=== PATIENT | male | born 1950 | race Caucasian/White ===

== ENCOUNTER 2018-04-15 06:04 | Day surgery (SDC) | payer MEDICARE ==
[~2018-04-15] VITALS: Ht 177.8 cm; Wt 108.9 kg
[~2018-04-15 06:04] MED LIST: HYDACE10B PO; VALD20 PO
[2018-04-15] MEDS ORDERED: METO25ER PO (06:43)
[2018-04-15] MEDS ORDERED: IRBE150 PO (06:43)
[2018-04-15] MEDS ORDERED: ASPI81CH PO (06:44)
== END 2018-04-15 11:31 | disposition home or self-care (01) ==
LOC: ORSCSDS 06:04
PROVIDERS: Orthopaedic Surgery
PROC: 0MM14ZZ Reattachment of Right Shoulder Bursa and Ligament, Percutaneous Endoscopic Approach (ICD-10-PCS; principal; 2018-04-15 07:30)
PROC: 0LQ14ZZ Repair Right Shoulder Tendon, Percutaneous Endoscopic Approach (ICD-10-PCS; principal; 2018-04-15 07:30)
PROC: 0RNJ4ZZ Release Right Shoulder Joint, Percutaneous Endoscopic Approach (ICD-10-PCS; principal; 2018-04-15 07:30)
DX: M75.111 Incomplete rotator cuff tear or rupture of right shoulder, not specified as traumatic (principal); M75.41 Impingement syndrome of right shoulder; I10 Essential (primary) hypertension; I25.10 Atherosclerotic heart disease of native coronary artery without angina pectoris; Z79.82 Long term (current) use of aspirin; Z79.899 Other long term (current) drug therapy
CPT/HCPCS: J0330; J0690; J2250; J3010; J7040; J7120

== ENCOUNTER 2018-08-05 11:44 | Day surgery (SDC) | payer MEDICARE ==
[~2018-08-05] VITALS: Ht 180.3 cm; Wt 108.2 kg
[~2018-08-05 11:44] MED LIST changes: +ASPI81CH PO; +IRBE150 PO; +METO25ER PO
== END 2018-08-05 14:40 | disposition home or self-care (01) ==
LOC: ORSCSDS 11:44
PROVIDERS: Internal Medicine Gastroenterology
PROC: 0DB68ZX Excision of Stomach, Via Natural or Artificial Opening Endoscopic, Diagnostic (ICD-10-PCS; principal; 2018-08-05 13:00)
PROC: 0DBK8ZX Excision of Ascending Colon, Via Natural or Artificial Opening Endoscopic, Diagnostic (ICD-10-PCS; principal; 2018-08-05 13:00)
PROC: 0DBL8ZX Excision of Transverse Colon, Via Natural or Artificial Opening Endoscopic, Diagnostic (ICD-10-PCS; principal; 2018-08-05 13:00)
PROC: 0DB58ZX Excision of Esophagus, Via Natural or Artificial Opening Endoscopic, Diagnostic (ICD-10-PCS; principal; 2018-08-05 13:00)
DX: Z12.11 Encounter for screening for malignant neoplasm of colon (principal); Z86.010 Personal history of colon polyps; D12.2 Benign neoplasm of ascending colon; D12.3 Benign neoplasm of transverse colon; K57.30 Diverticulosis of large intestine without perforation or abscess without bleeding; Z87.891 Personal history of nicotine dependence; K74.69 Other cirrhosis of liver; K44.9 Diaphragmatic hernia without obstruction or gangrene; I85.00 Esophageal varices without bleeding; D69.6 Thrombocytopenia, unspecified; Z79.899 Other long term (current) drug therapy; Z79.82 Long term (current) use of aspirin
CPT/HCPCS: 87081; 88305; 88312; J7120

== ENCOUNTER → 2020-08-17 | Outpatient (CLI) | payer MEDICARE | END | disposition home or self-care (01) | LOC: PLD 13:29 → LAB SHORT 13:29 | DX: D22.5 Melanocytic nevi of trunk (principal) | CPT/HCPCS: 88305 ==

== ENCOUNTER 2021-09-18 19:35 | Inpatient (IN) | payer MEDICARE ==
[~2021-09-18] VITALS: Ht 177.8 cm; Wt 116.5 kg
[~2021-09-18 19:35] MED LIST changes: -IRBE150 PO; -METO25ER PO
[2021-09-18 20:20] LABS: Hematocrit 33.2 % (37.0-53.0); Hemoglobin 11.2 g/dL (13.5-17.5); Mean Corpuscular HGB 29.2 pg (26.0-34.0); Mean Corpuscular HGB Conc 33.7 g/dL (31.5-36.5); Mean Corpuscular Volume 87 fL (80-100); Mean Platelet Volume 9.9 fL (9.1-12.4); Platelet Count 212 K/mm3 (150-400); RDW Coefficient Variation 14.3 % (11.7-14.2); RDW Standard Deviation 45.5 fL (35.1-46.3); Red Blood Cell Count 3.84 M/mm3 (4.30-5.90); White Blood Cell Count 7.76 K/mm3 (4.00-11.30)
[2021-09-18 20:42] LABS: Alanine Aminotransfer (ALT/SGP 29 U/L (12-78); Albumin, Blood 1.9 g/dL (3.4-5.0); Albumin/Globulin Ratio 0.3 (0.8-1.8); Alk Phos 100 U/L (50-136); Anion Gap 10 mmol/L (6-16); Aspartate Aminotrans (AST/SGOT 68 U/L (12-37); Bilirubin, Total 0.9 mg/dL (0.1-1.0); Blood Urea Nitrogen 19 mg/dL (8-24); Bun/Creatinine Ratio 25.3 (12.0-20.0); CO2, Blood 23 mmol/L (21-32); Calcium, Blood 8.2 mg/dL (8.5-10.1); Chloride, Blood 97 mmol/L (98-108); Creatinine, Blood 0.75 mg/dL (0.60-1.20); Globulin, Blood 5.6 g/dL (2.2-4.0); Glomerular Filtration Rate >60 (60-); Glucose, Blood 106 mg/dL (70-99); Potassium, Blood 3.8 mmol/L (3.5-5.5); Sodium, Blood 130 mmol/L (136-145); Total Protein, Blood 7.5 g/dL (6.4-8.2)
[2021-09-18 20:44] LABS: BAND PERCENT MAN 1 % (0-8); BASOPHILS PERCENT MAN 0 % (0-2); EOSINOPHILS ABSOLUTE MAN 0.07 K/mm3 (0.00-0.68); EOSINOPHILS PERCENT MAN 1 % (0-6); LYMPHOCYTES % ATYPICAL MANUAL 1 % (0-0); LYMPHOCYTES ABSOLUTE MAN 0.85 K/mm3 (0.84-5.20); LYMPHOCYTES PERCENT MAN 10 % (21-46); MONOCYTES ABSOLUTE MAN 0.23 K/mm3 (0.16-1.47); MONOCYTES PERCENT MAN 3 % (4-13); NEUTROPHILS ABSOLUTE MAN 6.59 K/mm3 (1.96-9.15); SEG NEUTROPHILS PERCENT MAN 84 % (41-73); TOTAL CELLS COUNTED 100
[2021-09-18 21:26] LABS: International Normalized Ratio 1.22; Prothrombin Time Results 12.6 Sec (9.7-11.5)
[2021-09-19 00:46] LABS: SARS-Cov-2 (COVID-19) PCR, MMC NEGATIVE (NEGATIVE)
[2021-09-19 01:07] LABS: BASOPHILS ABSOLUTE AUTO 0.01 K/mm3 (0.00-0.23); BASOPHILS PERCENT AUTO 0 % (0-2); EOSINOPHILS ABSOLUTE AUTO 0.02 K/mm3 (0.00-0.68); EOSINOPHILS PERCENT AUTO 0 % (0-6); Hemoglobin 9.3 g/dL (13.5-17.5); Mean Corpuscular HGB 28.8 pg (26.0-34.0); Mean Corpuscular HGB Conc 33.2 g/dL (31.5-36.5); Mean Corpuscular Volume 87 fL (80-100); Mean Platelet Volume 9.8 fL (9.1-12.4); Platelet Count 186 K/mm3 (150-400); RDW Coefficient Variation 14.4 % (11.7-14.2); RDW Standard Deviation 45.7 fL (35.1-46.3); Red Blood Cell Count 3.23 M/mm3 (4.30-5.90); White Blood Cell Count 5.82 K/mm3 (4.00-11.30)
[2021-09-19 01:09] LABS: IMMATURE GRAN ABSOLUTE AUTO 0.03 K/mm3 (0.00-0.10); IMMATURE GRAN PERCENT AUTO 1 % (0-1); LYMPHOCYTES ABSOLUTE AUTO 0.61 K/mm3 (0.84-5.20); LYMPHOCYTES PERCENT AUTO 11 % (21-46); MONOCYTES PERCENT AUTO 7 % (4-13); NEUTROPHILS ABSOLUTE AUTO 4.75 K/mm3 (1.96-9.15); NEUTROPHILS PERCENT AUTO 82 % (41-73)
[2021-09-19 07:40] LABS: Hemoglobin 9.4 g/dL (13.5-17.5); Mean Corpuscular HGB 29.5 pg (26.0-34.0); Mean Corpuscular HGB Conc 33.6 g/dL (31.5-36.5); Mean Corpuscular Volume 88 fL (80-100); Mean Platelet Volume 9.9 fL (9.1-12.4); Platelet Count 203 K/mm3 (150-400); RDW Coefficient Variation 14.5 % (11.7-14.2); RDW Standard Deviation 46.6 fL (35.1-46.3); Red Blood Cell Count 3.19 M/mm3 (4.30-5.90); White Blood Cell Count 4.81 K/mm3 (4.00-11.30)
[2021-09-19 08:24] LABS: D-Dimer, Quantitative 32.31 mg/L FEU (0.00-0.52); International Normalized Ratio 1.31; Prothrombin Time Results 13.5 Sec (9.7-11.5)
[2021-09-19 08:39] LABS: BAND PERCENT MAN 3 % (0-8); BASOPHILS PERCENT MAN 0 % (0-2); EOSINOPHILS ABSOLUTE MAN 0.04 K/mm3 (0.00-0.68); EOSINOPHILS PERCENT MAN 1 % (0-6); LYMPHOCYTES PERCENT MAN 23 % (21-46); MONOCYTES ABSOLUTE MAN 0.14 K/mm3 (0.16-1.47); MONOCYTES PERCENT MAN 3 % (4-13); NEUTROPHILS ABSOLUTE MAN 3.51 K/mm3 (1.96-9.15); SEG NEUTROPHILS PERCENT MAN 70 % (41-73); TOTAL CELLS COUNTED 100
[2021-09-19] MEDS ORDERED: LATANOPROST2.5 M3 BOTHEYES (12:34)
[2021-09-19] MEDS ORDERED: METO25ER PO (12:34)
[2021-09-19] MEDS ORDERED: IRBE150 PO (12:35)
[2021-09-19] MEDS ORDERED: ESOMEPRAZOLE MA20 MG PO (13:26)
[2021-09-19] MEDS ORDERED: PRESERVISION A1 EAC1 PO (13:27)
[2021-09-19 15:14] LABS: Anion Gap 10 mmol/L (6-16); Blood Urea Nitrogen 16 mg/dL (8-24); CO2, Blood 21 mmol/L (21-32); Chloride, Blood 102 mmol/L (98-108); Glucose, Blood 95 mg/dL (70-99); Potassium, Blood 3.7 mmol/L (3.5-5.5); Sodium, Blood 133 mmol/L (136-145)
[2021-09-19 15:15] LABS: Alanine Aminotransfer (ALT/SGP 26 U/L (12-78); Albumin, Blood 1.5 g/dL (3.4-5.0); Albumin/Globulin Ratio 0.3 (0.8-1.8); Alk Phos 77 U/L (50-136); Aspartate Aminotrans (AST/SGOT 55 U/L (12-37); Bilirubin, Total 0.7 mg/dL (0.1-1.0); Bun/Creatinine Ratio 25.4 (12.0-20.0); Calcium, Blood 7.6 mg/dL (8.5-10.1); Creatinine, Blood 0.63 mg/dL (0.60-1.20); Globulin, Blood 4.8 g/dL (2.2-4.0); Glomerular Filtration Rate >60 (60-); Total Protein, Blood 6.3 g/dL (6.4-8.2)
[2021-09-19 16:23] LABS: Hematocrit 26.3 % (37.0-53.0); Hemoglobin 8.7 g/dL (13.5-17.5)
--- NOTE | 2021-09-19 17:30 | NUR ---
PATIENT ARRIVED TO THE FLOOR FROM ED AT ABOUT 1630 TODAY. PATIENT TRANFERED SELF TO BED WITH MIN ASSIST. DRESSING TO LEFT LEG CDI AT THIS TIME, CHANGED PRIOR TO COMING TO THE FLOOR. ED NURSE STATES MODERATE AMOUNT OF PURULENT DRAINAGE NOTED. PETECHIAE NOTED ALL OVER PATIENTS BODY. LEFT LEG IS SWOLLEN WITH 2+ EDEMA NOTED. US DONE AT BEDSIDE. IVF CONTINUE WITH IV ANTIBIOTICS. ALERT AND ORIENTED. NEW ORDERS FOR PAIN MEDS RECIEVED. NO SIGNS OR SYMPTOMS ACUTE DISTRESS NOTED. CALL LIGHT AND WATER IN EASY REACH. PATIENT ON CLEAR LIQUID DIET AND TOLERATING WELL. AWAITING OPEN BED AT [facility] IN [place] FOR PATIENT TO TRANSFER. NO BM'S SINCE ARRIVING TO FLOOR. AAO X 4. WILL MONITOR.
[2021-09-19 21:09] LABS: Hematocrit 25.4 % (37.0-53.0); Hemoglobin 8.6 g/dL (13.5-17.5)
[2021-09-20 03:11] LABS: BASOPHILS ABSOLUTE AUTO 0.02 K/mm3 (0.00-0.23); BASOPHILS PERCENT AUTO 0 % (0-2); EOSINOPHILS ABSOLUTE AUTO 0.12 K/mm3 (0.00-0.68); EOSINOPHILS PERCENT AUTO 3 % (0-6); Hematocrit 26.3 % (37.0-53.0); Hemoglobin 8.7 g/dL (13.5-17.5); IMMATURE GRAN ABSOLUTE AUTO 0.02 K/mm3 (0.00-0.10); IMMATURE GRAN PERCENT AUTO 0 % (0-1); LYMPHOCYTES ABSOLUTE AUTO 0.67 K/mm3 (0.84-5.20); LYMPHOCYTES PERCENT AUTO 15 % (21-46); MONOCYTES ABSOLUTE AUTO 0.39 K/mm3 (0.16-1.47); MONOCYTES PERCENT AUTO 9 % (4-13); Mean Corpuscular HGB Conc 33.1 g/dL (31.5-36.5); Mean Corpuscular Volume 88 fL (80-100); Mean Platelet Volume 9.5 fL (9.1-12.4); NEUTROPHILS ABSOLUTE AUTO 3.23 K/mm3 (1.96-9.15); NEUTROPHILS PERCENT AUTO 73 % (41-73); Platelet Count 148 K/mm3 (150-400); RDW Coefficient Variation 14.5 % (11.7-14.2); RDW Standard Deviation 46.5 fL (35.1-46.3); White Blood Cell Count 4.45 K/mm3 (4.00-11.30)
[2021-09-20 03:25] LABS: International Normalized Ratio 1.29; Prothrombin Time Results 13.3 Sec (9.7-11.5)
[2021-09-20 03:47] LABS: Alanine Aminotransfer (ALT/SGP 21 U/L (12-78); Albumin, Blood 1.5 g/dL (3.4-5.0); Albumin/Globulin Ratio 0.4 (0.8-1.8); Alk Phos 76 U/L (50-136); Anion Gap 5 mmol/L (6-16); Aspartate Aminotrans (AST/SGOT 51 U/L (12-37); Bilirubin, Total 0.8 mg/dL (0.1-1.0); Blood Urea Nitrogen 13 mg/dL (8-24); Bun/Creatinine Ratio 19.8 (12.0-20.0); CO2, Blood 25 mmol/L (21-32); Calcium, Blood 7.4 mg/dL (8.5-10.1); Chloride, Blood 105 mmol/L (98-108); Creatinine, Blood 0.66 mg/dL (0.60-1.20); Globulin, Blood 4.1 g/dL (2.2-4.0); Glomerular Filtration Rate >60 (60-); Glucose, Blood 93 mg/dL (70-99); Magnesium, Blood 1.7 mg/dL (1.6-2.4); Potassium, Blood 3.9 mmol/L (3.5-5.5); Sodium, Blood 135 mmol/L (136-145); Total Protein, Blood 5.6 g/dL (6.4-8.2)
--- NOTE | 2021-09-20 06:07 | NUR ---
VSS. A/OX4. L LE ELEVATED. MINMIAL DRAINAGE TO L KNEE DSG. REINFORCED X1. REDNESS/EDEMA TO L LE. REDNESS TO L THIGH. GENERALIZED PETECHIAE. C/O PAIN TO L LE-SEE EMAR. IV FLUIDS RUNNING THROUGHOUT SHIFT. IV ABX GIVEN. HGB MONITORED-8.7, 8.6, 8.5. BM X2, MINIMAL BLOOD NOTED IN STOOL. STANDBY W/ WALKER TO BR. +VOID. AWAITING COBRA TRANSFER TO [facility]. NO ISSUES THROUGHOUT SHIFT.
[2021-09-20 09:02] LABS: Hematocrit 26.8 % (37.0-53.0); Hemoglobin 8.9 g/dL (13.5-17.5)
--- NOTE | 2021-09-20 11:19 | NUR ---
spoke with [facility], REPORTED THAT PT IS ON THEIR TRANSFER LIST BUT CURRENTLY THEY ARE ON A HOLD AND UNABLE TO GIVE A TIMELINE FOR POSSIBLE TRANSFER. CALL PLACED TO HOSPITALIST TO NOTIFY, AWAITING RETURN CALL.
[2021-09-20 13:43] LABS: Vancomycin, Trough 20.9 ug/mL (5.0-10.0)
--- NOTE | 2021-09-20 17:55 | NUR ---
PATIENT ARRIVED TO FLOOR FROM PACU AT 1400 TODAY. HE WAS ALERT AND AWAKE WITH NO COMPLAINTS OF SEVERE PAIN OR NAUSEA AT THAT TIME. AT THIS TIME PATIENT IS SITTING UP IN BED TAKING HIS CLEAR LIQUID DIET AND TOLERATING WELL. NO COMPLAINTS OF NAUSEA AND DENIES NEED FOR PAIN MED AT THIS TIME. JAKUB DRESSINGS X 2 TO ABDOMENT ARE CDI. LAP SITES WITH NO DRAINAGE. PATIENT ABLE TO MAKE NEEDS AND WANTS KNOWN. AAO X 4. NO SIGNS OR SYMPTOMS ACUTE DISTRESS NOTED. RANGEL CATH PATENT WITH CLEAR YELLOW URINE DRAINING. DR GILMORE WANTS TO KEEP RANGEL OVERNIGHT. WILL MONITOR.
--- NOTE | 2021-09-20 18:02 | NUR ---
PATIENT CURRENTLY SITTING UP IN BED WITH NO SIGNS OR SYMPTOMS ACUTE DISTRESS NOTED. CALL LIGHT AND WATER IN EASY REACH. ABLE TO MAKE NEEDS AND WANTS KNOWN. DR MOSHER CONSULTED ON PATIENT TODAY. DR MOSHER HAS MADE PATIENT NPO AFTER MIDNIGHT FOR POSSIBLE I&D TOMORROW AFTER HE TALKS TO DR RODRIGEZ IN [place] AT [facility]. DR MOSHER DRESSED PATIENTS LEFT KNEE WITH GUAZE, ABD PADS, WEB ROLL AND JHONNY BANDAGE. DRESSING SHOULD BE CHANGED DAILY PER DR MOSHER. PATIENT REMAINS ON IV ANTIBIOTICS AND IV FLUIDS. IV REMOVED TO LEFT ARM DUE TO LEAKING. PATIENTS VISITED TODAY. WILL MONITOR.
[2021-09-20 19:02] LABS: Hematocrit 25.3 % (37.0-53.0); Hemoglobin 8.4 g/dL (13.5-17.5)
[2021-09-21 04:36] LABS: Hematocrit 25.7 % (37.0-53.0); Hemoglobin 8.4 g/dL (13.5-17.5); Mean Corpuscular HGB 28.8 pg (26.0-34.0); Mean Corpuscular HGB Conc 32.7 g/dL (31.5-36.5); Mean Corpuscular Volume 88 fL (80-100); Mean Platelet Volume 9.3 fL (9.1-12.4); Platelet Count 164 K/mm3 (150-400); RDW Coefficient Variation 14.6 % (11.7-14.2); RDW Standard Deviation 47.3 fL (35.1-46.3); Red Blood Cell Count 2.92 M/mm3 (4.30-5.90); White Blood Cell Count 4.02 K/mm3 (4.00-11.30)
[2021-09-21 05:48] LABS: Alanine Aminotransfer (ALT/SGP 27 U/L (12-78); Albumin, Blood 1.4 g/dL (3.4-5.0); Albumin/Globulin Ratio 0.3 (0.8-1.8); Alk Phos 87 U/L (50-136); Anion Gap 6 mmol/L (6-16); Aspartate Aminotrans (AST/SGOT 55 U/L (12-37); Bilirubin, Total 0.7 mg/dL (0.1-1.0); Blood Urea Nitrogen 11 mg/dL (8-24); Bun/Creatinine Ratio 17.1 (12.0-20.0); CO2, Blood 24 mmol/L (21-32); Calcium, Blood 7.6 mg/dL (8.5-10.1); Chloride, Blood 107 mmol/L (98-108); Creatinine, Blood 0.64 mg/dL (0.60-1.20); Ferritin, Serum 153 ng/mL (26-388); Globulin, Blood 4.3 g/dL (2.2-4.0); Glomerular Filtration Rate >60 (60-); Glucose, Blood 88 mg/dL (70-99); Iron Serum 27 ug/dL (65-175); Percent Saturation 17.3 % (20.0-50.0); Potassium, Blood 3.9 mmol/L (3.5-5.5); Sodium, Blood 137 mmol/L (136-145); Total Iron Binding Capacity 156 ug/dL (250-450); Total Protein, Blood 5.7 g/dL (6.4-8.2)
--- NOTE | 2021-09-21 06:24 | NUR ---
VSS. IV FLUIDS RUNNING THROUGHOUT SHIFT. IV ABX GIVEN. C/O CONSISTENT PAIN TO L LE. PAIN MEDS GIVEN CONSISTENTLY APPROX Q2H THROUGHOUT SHIFT. PT REQUIRING IV/PO PAIN MEDS-SEE EMAR. NPO SINCE MIDNIGHT. POSSIBLE WASHOUT OF L KNEE TODAY, 09/21. +VOIDING. NO BM THIS SHIFT. NO EVIDENCE OF BLOODY STOOL THIS SHIFT. HGB STABLE AT 8.6. AWAITING TRANSFER THROUGH [facility] TO [facility]. UPDATE GIVEN TO TRANSFER RN THIS AM. NO ISSUES THROUGHOUT SHIFT
--- NOTE | 2021-09-21 09:40 | NUR ---
PATIENT REMAINS NPO FOR POSSIBLE WASH OUT OF LEFT KNEE TODAY. NO SIGNS OR SYMPTOMS ACUTE DISTRESS NOTED. CALL LIGHT AND WATER IN EASY REACH. HOSPITALIST IN ROOM NOW TALKING WITH PATIENT.
--- NOTE | 2021-09-21 13:15 | NUR ---
History, Chart, Medications and Allergies reviewed before start of procedure.Pre-Op teaching done. Pt verbalizes understanding.
--- NOTE | 2021-09-21 15:35 | NUR ---
09/21/21 1535 GLENNGARCÍA PEREZ PT ON SCHEDULED ANTIBIOTICS PER DR ORDERS, PT RECEIVED ANTIBIOTICS 09/21/21 PRIOR TO PROCEDURE.
--- NOTE | 2021-09-21 18:03 | NUR ---
PATIENT CURRENTLY LYING IN BED WITH NO SIGNS OR SYMPTOMS ACUTE DISTRESS NOTED. PATIENT HAD MULTIPLE EPISODES OF NAUSEA AND VOMITING TODAY, MEDICATED PER ORDERS. HE NOW FILL BETTER AND IS PASSING GAS, HE SAYS HE DOES NOT FEEL BLOATED. ABD BINDER IN PLACE FOR COMFORT. JAKUB DRESSINGS X 2 TO ABD ARE INTACT. RANGEL WAS REMOVED THIS AM AND IS NOW VOIDING PER URINAL. PATIENT UP AND WALKED IN BATES TODAY X 2 AND IN ROOM MULTIPLE TIMES. PATIENT IS VERY MOTIVATED. WILL MONITOR.
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
--- NOTE | 2021-09-21 23:27 | NUR ---
PATIENT IS AAOX4. AT 1999 PAIENT HD PAIN ON HIS LEFT KNEE AND WAS MEDICATED FOR THAT. HIS LEFT KNE DRESSING CLEAN DRY INTACT W/JHONNY WRAP. NO VERBALIZED NEEDS AT THAT TIME. NO ACUTE DISTRESS NOTED. REPORT GIVEN TO THE TRANSPORTERS AND PATIENT TRANSPORTED TO [facility].
--- NOTE | 2021-09-22 10:15 | NUR ---
Patient is a [facility] patient who was transferred to [facility] on 09/19/2021 due to post-op infection. Patient was transferred to [facility] on 09/21/2021. No further interventions required. Gina Quach Referral Liaison
== END 2021-09-21 21:15 | disposition short-term general hospital (02) | DRG 464 ==
LOC: ER 19:35 → ERHOLD 09-19 13:17 → SURS 09-19 13:17
PROVIDERS: Emergency Medicine; Internal Medicine; Nurse Practitioner Acute Care; Orthopaedic Surgery; Pharmacist; Physician Assistant; ADMIT Internal Medicine
PROC: 0JBP0ZZ Excision of Left Lower Leg Subcutaneous Tissue and Fascia, Open Approach (ICD-10-PCS; 2021-09-21)
PROC: 0SBD0ZZ Excision of Left Knee Joint, Open Approach (ICD-10-PCS; principal; 2021-09-21 13:30)
DX: T84.54XA Infection and inflammatory reaction due to internal left knee prosthesis, initial encounter (principal); T81.49XA Infection following a procedure, other surgical site, initial encounter; K92.2 Gastrointestinal hemorrhage, unspecified; M31.0 Hypersensitivity angiitis; E66.01 Morbid (severe) obesity due to excess calories; E78.5 Hyperlipidemia, unspecified; K52.9 Noninfective gastroenteritis and colitis, unspecified; Z79.899 Other long term (current) drug therapy; I10 Essential (primary) hypertension; Z98.890 Other specified postprocedural states; Z88.5 Allergy status to narcotic agent; Z88.8 Allergy status to other drugs, medicaments and biological substances; K70.30 Alcoholic cirrhosis of liver without ascites; I77.6 Arteritis, unspecified; Z20.822 Contact with and (suspected) exposure to COVID-19; Z68.33 Body mass index [BMI] 33.0-33.9, adult
CPT/HCPCS: 36415; 73552; 73562-LT; 73590; 74177; 80053; 80202; 82607; 82728; 82746; 83540; 83550; 83605; 83735; 85014; 85018; 85025; 85027; 85379; 85384; 85610; 85651; 85730; 86140; 86850; 86900; 86901; 87040; 87070; 87071; 87075; 87077; 87147; 87186; 87205; 88305; 93005; 93010; 93308; 93321; 93971; 96365; 96375; 96376; 99285-25; A9270; J0690; J1100; J1956; J2250; J2270; J2405; J3010; J3370; J7030; J7050; J7120; Q9967; U0004

== ENCOUNTER → 2021-10-10 | Outpatient (CLI) | payer MEDICARE ==
[~2021-10-10] MED LIST changes: +ESOMEPRAZOLE MA20 MG PO; +IRBE150 PO; +LATANOPROST2.5 M3 BOTHEYES; +METO25ER PO; +PRESERVISION A1 EAC1 PO
[2021-10-10 12:32] LABS: Hematocrit 24.1 % (37.0-53.0); Hemoglobin 7.9 g/dL (13.5-17.5); Mean Corpuscular HGB 28.8 pg (26.0-34.0); Mean Corpuscular HGB Conc 32.8 g/dL (31.5-36.5); Mean Corpuscular Volume 88 fL (80-100); Mean Platelet Volume 10.6 fL (9.1-12.4); Platelet Count 105 K/mm3 (150-400); RDW Coefficient Variation 15.8 % (11.7-14.2); RDW Standard Deviation 50.1 fL (35.1-46.3); Red Blood Cell Count 2.74 M/mm3 (4.30-5.90); White Blood Cell Count 3.07 K/mm3 (4.00-11.30)
[2021-10-10 12:54] LABS: Alanine Aminotransfer (ALT/SGP 8 U/L (12-78); Albumin, Blood 1.5 g/dL (3.4-5.0); Albumin/Globulin Ratio 0.3 (0.8-1.8); Alk Phos 107 U/L (50-136); Anion Gap 7 mmol/L (6-16); Aspartate Aminotrans (AST/SGOT 25 U/L (12-37); Bilirubin, Total 0.8 mg/dL (0.1-1.0); Blood Urea Nitrogen 20 mg/dL (8-24); Bun/Creatinine Ratio 22.3 (12.0-20.0); CO2, Blood 26 mmol/L (21-32); CPK Creatine Kinase 33 U/L (39-308); Calcium, Blood 8.4 mg/dL (8.5-10.1); Chloride, Blood 101 mmol/L (98-108); Globulin, Blood 4.6 g/dL (2.2-4.0); Glomerular Filtration Rate >60 (60-); Glucose, Blood 143 mg/dL (70-99); Potassium, Blood 3.8 mmol/L (3.5-5.5); Sodium, Blood 134 mmol/L (136-145); Total Protein, Blood 6.1 g/dL (6.4-8.2)
[2021-10-10 13:15] LABS: BASOPHILS PERCENT MAN 0 % (0-2); EOSINOPHILS ABSOLUTE MAN 0.06 K/mm3 (0.00-0.68); EOSINOPHILS PERCENT MAN 2 % (0-6); LYMPHOCYTES ABSOLUTE MAN 0.42 K/mm3 (0.84-5.20); LYMPHOCYTES PERCENT MAN 14 % (21-46); MONOCYTES ABSOLUTE MAN 0.15 K/mm3 (0.16-1.47); MONOCYTES PERCENT MAN 5 % (4-13); NEUTROPHILS ABSOLUTE MAN 2.42 K/mm3 (1.96-9.15); SEG NEUTROPHILS PERCENT MAN 79 % (41-73); TOTAL CELLS COUNTED 100
== END | disposition home or self-care (01) ==
LOC: LAB 11:29 → LAB HH 11:29
PROVIDERS: Dentist Oral and Maxillofacial Surgery
DX: A49.02 Methicillin resistant Staphylococcus aureus infection, unspecified site (principal); Z79.2 Long term (current) use of antibiotics
CPT/HCPCS: 80053; 82550; 85025; 86140

== ENCOUNTER 2021-10-16 05:13 | Inpatient (IN) | payer MEDICARE ==
[~2021-10-16] VITALS: Ht 180.3 cm; Wt 107.4 kg
[2021-10-16 05:47] LABS: BASOPHILS ABSOLUTE AUTO 0.02 K/mm3 (0.00-0.23); BASOPHILS PERCENT AUTO 0 % (0-2); EOSINOPHILS ABSOLUTE AUTO 0.05 K/mm3 (0.00-0.68); EOSINOPHILS PERCENT AUTO 1 % (0-6); Hematocrit 26.1 % (37.0-53.0); Hemoglobin 8.7 g/dL (13.5-17.5); IMMATURE GRAN ABSOLUTE AUTO 0.01 K/mm3 (0.00-0.10); IMMATURE GRAN PERCENT AUTO 0 % (0-1); LYMPHOCYTES ABSOLUTE AUTO 0.75 K/mm3 (0.84-5.20); LYMPHOCYTES PERCENT AUTO 16 % (21-46); MONOCYTES ABSOLUTE AUTO 0.46 K/mm3 (0.16-1.47); MONOCYTES PERCENT AUTO 10 % (4-13); Mean Corpuscular HGB 28.1 pg (26.0-34.0); Mean Corpuscular HGB Conc 33.3 g/dL (31.5-36.5); Mean Corpuscular Volume 84 fL (80-100); Mean Platelet Volume 9.8 fL (9.1-12.4); NEUTROPHILS ABSOLUTE AUTO 3.36 K/mm3 (1.96-9.15); NEUTROPHILS PERCENT AUTO 72 % (41-73); Platelet Count 154 K/mm3 (150-400); RDW Coefficient Variation 15.3 % (11.7-14.2); RDW Standard Deviation 47.4 fL (35.1-46.3); White Blood Cell Count 4.65 K/mm3 (4.00-11.30)
[2021-10-16 06:13] LABS: Alanine Aminotransfer (ALT/SGP 12 U/L (12-78); Albumin, Blood 1.6 g/dL (3.4-5.0); Albumin/Globulin Ratio 0.3 (0.8-1.8); Alk Phos 92 U/L (50-136); Anion Gap 11 mmol/L (6-16); Aspartate Aminotrans (AST/SGOT 30 U/L (12-37); Blood Urea Nitrogen 32 mg/dL (8-24); Bun/Creatinine Ratio 15.6 (12.0-20.0); CO2, Blood 22 mmol/L (21-32); Calcium, Blood 8.7 mg/dL (8.5-10.1); Chloride, Blood 97 mmol/L (98-108); Creatinine, Blood 2.05 mg/dL (0.60-1.20); Globulin, Blood 5.4 g/dL (2.2-4.0); Glomerular Filtration Rate 32 (60-); Glucose, Blood 100 mg/dL (70-99); Potassium, Blood 4.7 mmol/L (3.5-5.5); Sodium, Blood 130 mmol/L (136-145); Troponin I <0.015 ng/mL (0.000-0.040)
[2021-10-16 07:53] LABS: Influenza A, PCR NEGATIVE (NEGATIVE); Influenza B, PCR NEGATIVE (NEGATIVE); Resp Syncytial Virus, PCR NEGATIVE (NEGATIVE); SARS-Cov-2 (COVID-19) PCR, MMC NEGATIVE (NEGATIVE)
[2021-10-16 11:01] LABS: Albumin, Blood 1.6 g/dL (3.4-5.0); Albumin/Globulin Ratio 0.3 (0.8-1.8); Bilirubin, Direct 0.5 mg/dL (0.0-0.3); Bilirubin, Indirect 0.4 mg/dL (0.1-0.7); Bilirubin, Total 0.9 mg/dL (0.1-1.0); Globulin, Blood 5.5 g/dL (2.2-4.0); Total Protein, Blood 7.1 g/dL (6.4-8.2)
--- NOTE | 2021-10-16 18:51 | NUR ---
PT ARRIVED TO UNIT FROM ED TRANSFERRED W/SBA TO BED FROM [facility]. VOIDED/ SENT URINE SPECIMEN PER ORDERS. REQUESTED TELE BOX. PT ORIENTED TO ROOM. REPORT GIVEN TO ONCOMING SHIFT.
[2021-10-16] MEDS ORDERED: GABA100 PO (21:53)
[2021-10-16] MEDS ORDERED: ENOX40I SC (21:53)
[2021-10-16] MEDS ORDERED: RIFA150 PO (21:55)
[2021-10-16] MEDS ORDERED: ACET500 PO (21:56)
[2021-10-16] MEDS ORDERED: Calcium Carbon500 MG PO (21:57)
[2021-10-17 04:56] LABS: Hemoglobin 7.6 g/dL (13.5-17.5); Mean Corpuscular HGB 28.4 pg (26.0-34.0); Mean Corpuscular Volume 86 fL (80-100); Mean Platelet Volume 10.1 fL (9.1-12.4); Platelet Count 109 K/mm3 (150-400); RDW Coefficient Variation 15.3 % (11.7-14.2); RDW Standard Deviation 48.5 fL (35.1-46.3); Red Blood Cell Count 2.68 M/mm3 (4.30-5.90); White Blood Cell Count 2.88 K/mm3 (4.00-11.30)
[2021-10-17 06:02] LABS: Iron Serum 18 ug/dL (65-175); Magnesium, Blood 1.4 mg/dL (1.6-2.4); Total Iron Binding Capacity 163 ug/dL (250-450)
[2021-10-17 06:03] LABS: Alanine Aminotransfer (ALT/SGP 13 U/L (12-78); Albumin, Blood 1.4 g/dL (3.4-5.0); Albumin/Globulin Ratio 0.3 (0.8-1.8); Alk Phos 81 U/L (50-136); Anion Gap 8 mmol/L (6-16); Aspartate Aminotrans (AST/SGOT 26 U/L (12-37); Bilirubin, Total 0.4 mg/dL (0.1-1.0); Blood Urea Nitrogen 35 mg/dL (8-24); Bun/Creatinine Ratio 14.2 (12.0-20.0); CO2, Blood 25 mmol/L (21-32); Calcium, Blood 7.7 mg/dL (8.5-10.1); Chloride, Blood 100 mmol/L (98-108); Creatinine, Blood 2.47 mg/dL (0.60-1.20); Ferritin, Serum 169 ng/mL (26-388); Globulin, Blood 4.5 g/dL (2.2-4.0); Glomerular Filtration Rate 26 (60-); Glucose, Blood 90 mg/dL (70-99); Phosphorus, Blood 4.3 mg/dL (2.5-4.9); Potassium, Blood 4.6 mmol/L (3.5-5.5); Sodium, Blood 133 mmol/L (136-145); Total Protein, Blood 5.9 g/dL (6.4-8.2); Vancomycin, Random 20.3 ug/mL
--- NOTE | 2021-10-17 15:53 | NUR ---
PATIENT CURRENTLY LYING IN BED WITH NO SIGNS OR SYMPTOMS ACUTE DISTRESS NOTED AT THIS TIME. CALL LIGHT AND WATER IN EASY REACH. ALERT AND ORIENTED AND ABLE TO MAKE NEEDS AND WANTS KNOWN. SUTURES TO LEFT KNEE REMOVED TODAY AND PATIENT TOLERTED WELL. LEFT KNEE WITH NO DRAINAGE NOTED. LEFT KNEE WITH IMMOBILIZER ON CORRECTLY. PATIENT ABLE TO STAND AT EDGE OF BED AND USED THE URNINAL UNASSISTED WITH USE OF WALKER. NO COMPLAINTS OF PAIN VOICED. WILL MONITOR.
--- NOTE | 2021-10-18 00:21 | NUR ---
FLUIDS INFUSING PER ORDER. PHARMACY MADE AWARE OF CREAT INCREASE FROM 10/16-10/17. CALLED TO CLARIFY IF THEY WOULD LIKE THE PATIENT TO STILL HAVE 0300 DOSE OF VANCO. STATES THEY WILL LOOK INTO IT AND GET BACK WITH CARD PUNCHING MACHINE OPERATOR.
--- NOTE | 2021-10-18 02:40 | NUR ---
Okay to give dose of vanco with elevated creat per pharmacist Bakari. Ruperto administer to pt. See EMAR.
[2021-10-18 05:24] LABS: Hematocrit 22.1 % (37.0-53.0); Hemoglobin 7.3 g/dL (13.5-17.5); Mean Corpuscular HGB 28.1 pg (26.0-34.0); Mean Corpuscular Volume 85 fL (80-100); Platelet Count 125 K/mm3 (150-400); RDW Coefficient Variation 15.3 % (11.7-14.2); RDW Standard Deviation 47.2 fL (35.1-46.3); White Blood Cell Count 3.02 K/mm3 (4.00-11.30)
[2021-10-18 06:10] LABS: Albumin, Blood 1.4 g/dL (3.4-5.0); Albumin/Globulin Ratio 0.3 (0.8-1.8); Bilirubin, Total 0.4 mg/dL (0.1-1.0); Bun/Creatinine Ratio 14.6 (12.0-20.0); C-REACTIVE PROTEIN, EXT RANGE 8.61 mg/dL (0.000-0.300); Calcium, Blood 8.2 mg/dL (8.5-10.1); Creatinine, Blood 2.61 mg/dL (0.60-1.20); Globulin, Blood 4.4 g/dL (2.2-4.0); Magnesium, Blood 1.7 mg/dL (1.6-2.4); Phosphorus, Blood 4.4 mg/dL (2.5-4.9); Potassium, Blood 4.2 mmol/L (3.5-5.5); Total Protein, Blood 5.8 g/dL (6.4-8.2)
[2021-10-18 06:13] LABS: BASOPHILS ABSOLUTE MAN 0.09 K/mm3 (0.00-0.23); BASOPHILS PERCENT MAN 3 % (0-2); EOSINOPHILS ABSOLUTE MAN 0.27 K/mm3 (0.00-0.68); EOSINOPHILS PERCENT MAN 9 % (0-6); LYMPHOCYTES PERCENT MAN 20 % (21-46); MONOCYTES ABSOLUTE MAN 0.03 K/mm3 (0.16-1.47); MONOCYTES PERCENT MAN 1 % (4-13); NEUTROPHILS ABSOLUTE MAN 2.02 K/mm3 (1.96-9.15); SEG NEUTROPHILS PERCENT MAN 67 % (41-73); TOTAL CELLS COUNTED 100
--- NOTE | 2021-10-18 06:14 | NUR ---
Pharmacist Bakari made aware of increase of creat level this am. States vanco levels will be drawn in the am. Will pass onto day RN about increase jump in creat from 10/17/21.
--- NOTE | 2021-10-18 17:37 | NUR ---
PATIENT CURRENTLY LYING IN BED WITH NO SIGNS OR SYMPTOMS ACUTE DISTRESS NOTED. NO COMPLAINTS VOICED TODAY. PULMONOLGY CONSULTED TODAY, ECHO DONE AT BESIDE. CALL LIGHT AND WATER IN EASY REACH. PATIENT HAS BEEN ON ROOM AIR. ABLE TO MAKE NEEDS AND WANTS KNOWN. WILL MONITOR.
[2021-10-19 06:18] LABS: BASOPHILS ABSOLUTE AUTO 0.02 K/mm3 (0.00-0.23); BASOPHILS PERCENT AUTO 1 % (0-2); EOSINOPHILS ABSOLUTE AUTO 0.14 K/mm3 (0.00-0.68); EOSINOPHILS PERCENT AUTO 4 % (0-6); Hematocrit 21.8 % (37.0-53.0); Hemoglobin 7.4 g/dL (13.5-17.5); Mean Corpuscular HGB 28.7 pg (26.0-34.0); Mean Corpuscular HGB Conc 33.9 g/dL (31.5-36.5); Mean Corpuscular Volume 85 fL (80-100); Mean Platelet Volume 10.8 fL (9.1-12.4); Platelet Count 129 K/mm3 (150-400); RDW Coefficient Variation 15.3 % (11.7-14.2); RDW Standard Deviation 47.1 fL (35.1-46.3); Red Blood Cell Count 2.58 M/mm3 (4.30-5.90); White Blood Cell Count 3.27 K/mm3 (4.00-11.30)
[2021-10-19 06:23] LABS: IMMATURE GRAN ABSOLUTE AUTO 0.01 K/mm3 (0.00-0.10); IMMATURE GRAN PERCENT AUTO 0 % (0-1); LYMPHOCYTES ABSOLUTE AUTO 0.71 K/mm3 (0.84-5.20); LYMPHOCYTES PERCENT AUTO 22 % (21-46); MONOCYTES ABSOLUTE AUTO 0.31 K/mm3 (0.16-1.47); MONOCYTES PERCENT AUTO 10 % (4-13); NEUTROPHILS ABSOLUTE AUTO 2.08 K/mm3 (1.96-9.15); NEUTROPHILS PERCENT AUTO 64 % (41-73)
--- NOTE | 2021-10-19 06:30 | NUR ---
PT IN BED AT THIS TIME WHERE HE REMAINS MUCH OF THE NIGHT AND IS RESTING WELL. HE IS ALERT, AWAKE, AND ORIENTED, CONDITION IS STABLE. HE C/O MILD TO MODERATE PAIN IN THE LLE THAT IS RELIEVED BY TYLENOL, NO OTHER COMPLAINTS. HE IS ASSISTED WITH CARE AND ADLS, MEDICATED INDICATED. EDEMA NOTED IN THE. PT ENCOURAGED AND ASSISTED WITH EXTREMITY ELEVATION FOR COMFORT, RELIEF, AND TO ASSIST WITH VENOUS RETURN. LEFT KNEE KEPT IN A BRACE TO INCREASE COMFORT. PT WAS GIVEN HIS CALL BUTTON AND WAS URGED TO CALL FOR HELP WHEN ASSISTANCE IS NEEDED HE IS MONITORED.
[2021-10-19 06:37] LABS: Albumin, Blood 1.4 g/dL (3.4-5.0); Albumin/Globulin Ratio 0.3 (0.8-1.8); Bilirubin, Total 0.8 mg/dL (0.1-1.0); Bun/Creatinine Ratio 15.1 (12.0-20.0); Creatinine, Blood 2.65 mg/dL (0.60-1.20); Globulin, Blood 4.8 g/dL (2.2-4.0); Magnesium, Blood 1.6 mg/dL (1.6-2.4); Phosphorus, Blood 4.3 mg/dL (2.5-4.9); Total Protein, Blood 6.2 g/dL (6.4-8.2)
[2021-10-19 08:11] LABS: COMPLEMENT C3, SERUM 131 mg/dL (82-167); COMPLEMENT C4, SERUM 12 mg/dL (12-38)
--- NOTE | 2021-10-19 16:15 | NUR ---
SHIFT SUMMARY: ACUTE KIDNEY FAILURE PATIENT IS ALERT AND ORIENTED X4. LEFT LEG IS IN AN IMMOBILIZER. PULSES ARE STRONG AND ABLE TO WIGLE TOES AND FINGERS. PATIENT WORKED WITH PT AND WAS A SBA WITH FWW AND GAIT BELT. PATIENT TOLERATES HIS PO INTAKE AND IS VOIDING. PATIENT NEEDS TO STAND TO VOID. PICC LINE IN BO IS INFUSING AND IS WNL. HE CALLS APPROPRIATELY. CALL LIGHT WITHIN REACH. ORTHO WAS CONSULTED WITH DR. HERRERA TO SEE IF PATIENT CAN BEND HIS LEFT KNEE. AWAITING TO HEAR BACK FROM DR. HERRERA. THE PLAN IS TO CONTINUE IV ABX AND ENCOURAGING DEEP BREATHING.
[2021-10-19 16:53] LABS: Source, Urine Clean Catch
[2021-10-19 16:57] LABS: Appearance, Urine Clear (Clear); Bilirubin, Urine Neg (Neg); Blood, Urine 5+ (Neg); Color, Urine Yellow (P-Yellow); Glucose Qualitative, Urine Neg (Neg); Ketones, Urine Neg (Neg); Leukocyte Esterase, Urine Neg (Neg); Nitrite, Urine Neg (Neg); Protein, Urine 2+ (Neg); Urobilinogen, Urine NORM (Normal)
[2021-10-19 17:06] LABS: Red Blood Cells, Urine TNTC /hpf (0-2)
[2021-10-19 17:07] LABS: Bacteria Few /hpf; Squamous Epithelial Cells Few /hpf (Few)
--- NOTE | 2021-10-19 23:03 | NUR ---
HTN/PAIN PT HAVING INCREASED BP SEE VITALS. PRN HYDRALAZINE GIVEN. PT HAVING 8/10 BACK PAIN. PT STATES HE TAKES OXYCODONE AT HOME. HOUSE DOCTOR MADE AWARE. ORDERS FOR PRN OXYCODONE. OXY GIVEN TO PT SEE EMAR. WILL REASSESS BP AND VITALS. WCTM
--- NOTE | 2021-10-20 06:13 | NUR ---
SHIFT SUMMARY PT A/OX4. HYPERTENSIVE AT TIMES. PRN HYDRALAZINE GIVEN X2. INCREASE OF PAIN OVERNIGHT. PRN JOE GIVEN X2. VSS AFTER PAIN MEDICATION AND HYDRALAZINE. LLE IN IMMOBILIZER AT ALL TIMES. 24 HOUR URINE COLLECTION STARTED 10/19 @2029. URINE DARK YELLOW IN COLOR.
[2021-10-20 06:23] LABS: BASOPHILS ABSOLUTE AUTO 0.02 K/mm3 (0.00-0.23); BASOPHILS PERCENT AUTO 1 % (0-2); EOSINOPHILS ABSOLUTE AUTO 0.22 K/mm3 (0.00-0.68); EOSINOPHILS PERCENT AUTO 5 % (0-6); Hematocrit 23.6 % (37.0-53.0); Hemoglobin 7.6 g/dL (13.5-17.5); Mean Corpuscular HGB 27.4 pg (26.0-34.0); Mean Corpuscular HGB Conc 32.2 g/dL (31.5-36.5); Mean Corpuscular Volume 85 fL (80-100); Mean Platelet Volume 9.8 fL (9.1-12.4); Platelet Count 145 K/mm3 (150-400); RDW Coefficient Variation 15.4 % (11.7-14.2); RDW Standard Deviation 47.8 fL (35.1-46.3); Red Blood Cell Count 2.77 M/mm3 (4.30-5.90); White Blood Cell Count 4.25 K/mm3 (4.00-11.30)
[2021-10-20 06:25] LABS: IMMATURE GRAN ABSOLUTE AUTO 0.02 K/mm3 (0.00-0.10); IMMATURE GRAN PERCENT AUTO 1 % (0-1); LYMPHOCYTES ABSOLUTE AUTO 0.94 K/mm3 (0.84-5.20); LYMPHOCYTES PERCENT AUTO 22 % (21-46); MONOCYTES ABSOLUTE AUTO 0.35 K/mm3 (0.16-1.47); MONOCYTES PERCENT AUTO 8 % (4-13); NEUTROPHILS PERCENT AUTO 64 % (41-73)
[2021-10-20 07:30] LABS: Albumin, Blood 1.4 g/dL (3.4-5.0); Anion Gap 10 mmol/L (6-16); Blood Urea Nitrogen 41 mg/dL (8-24); Bun/Creatinine Ratio 13.5 (12.0-20.0); CO2, Blood 20 mmol/L (21-32); Calcium, Blood 7.7 mg/dL (8.5-10.1); Chloride, Blood 106 mmol/L (98-108); Creatinine, Blood 3.03 mg/dL (0.60-1.20); Glomerular Filtration Rate 21 (60-); Glucose, Blood 83 mg/dL (70-99); Magnesium, Blood 1.9 mg/dL (1.6-2.4); Phosphorus, Blood 4.8 mg/dL (2.5-4.9); Potassium, Blood 4.5 mmol/L (3.5-5.5); Sodium, Blood 136 mmol/L (136-145)
--- NOTE | 2021-10-20 14:45 | NUR ---
SPOKE WITH DR. HERRERA AT THIS TIME CONCERNING PT MOBILITY AND SHOWERING, SEE NEW ORDERS. THERAPY AND RAILROAD WHEELS AND AXLE INSPECTORJARRETT MADE AWARE OF ORDERS.
--- NOTE | 2021-10-20 18:24 | NUR ---
SUMMARY: NO CHANGE TODAY, VSS. A/O, TELE STABLE. IMMOBILIZER TO L KNEE IN PLACE, PT ABLE TO WORK WITH THERAPY TODAY, MOVES ABOUT ROOM WITH MINIMAL ASSIST. MEDICATED FOR PAIN Q4 WITH OXYCODONE. PRN HYRALAZINE GIVEN X1. 24 HOUR URINE COLLECTION WILL BE COMPLETE AT 2030 TONIGHT. THIS RN SPOKE WITH DR. LINN WHILE HE WAS ON THE UNIT TODAY ABOUT PT AND PT HISTORY, UNSURE IF DR. LINN SAW PT TODAY, NO CHANGES TO ANTIOBIOTICS. WILL CTM AND REPORT TO NOC RN.
--- NOTE | 2021-10-20 21:24 | NUR ---
24 hour urine sent. Lab states they have recieved at this time. TM
[2021-10-20 22:26] LABS: Protein, Urine Quantitative 20.7 mg/dL (0.0-11.9)
--- NOTE | 2021-10-20 22:42 | NUR ---
HYPERTENSIVE PT HYPERTENSIVE. HOUSE DOCTOR CALLED TO MAKE AWARE X2 SINCE 1999. NO CALL BACK. PT IN PAIN. MEDS GIVEN. PRN HYDRALAZINE GIVEN NOW. WCTM
--- NOTE | 2021-10-21 00:42 | NUR ---
Pt BP 160/68 manually after PO hydralazine order. Dr. Saleem absecon doctor made aware. Orders to recheck in 1 hour. Will recheck at 0200.
--- NOTE | 2021-10-21 02:45 | NUR ---
HYPERTENSION Pt still hypertensive over PO PRN hydralazine order. Unable to give at this time. BP 162/[address] Saleem made aware. Orders for x1 dose of IVP hydralazine. Will administer to pt. WCTM
[2021-10-21 06:37] LABS: Hematocrit 22.9 % (37.0-53.0); Hemoglobin 7.7 g/dL (13.5-17.5)
[2021-10-21 06:56] LABS: Albumin, Blood 1.4 g/dL (3.4-5.0); Anion Gap 9 mmol/L (6-16); Blood Urea Nitrogen 41 mg/dL (8-24); CO2, Blood 22 mmol/L (21-32); Calcium, Blood 7.7 mg/dL (8.5-10.1); Chloride, Blood 104 mmol/L (98-108); Creatinine, Blood 3.42 mg/dL (0.60-1.20); Glomerular Filtration Rate 18 (60-); Glucose, Blood 88 mg/dL (70-99); Magnesium, Blood 1.6 mg/dL (1.6-2.4); Phosphorus, Blood 5.4 mg/dL (2.5-4.9); Potassium, Blood 4.4 mmol/L (3.5-5.5); Sodium, Blood 135 mmol/L (136-145)
[2021-10-21 15:07] LABS: A/G RATIO 0.6 (0.7-1.7); ALBUMIN 1.9 g/dL (2.9-4.4); ALPHA-1-GLOBULIN 0.3 g/dL (0.0-0.4); ALPHA-2-GLOBULIN 0.6 g/dL (0.4-1.0); BETA GLOBULIN 1.2 g/dL (0.7-1.3); GAMMA GLOBULIN 1.7 g/dL (0.4-1.8); GLOBULIN, TOTAL 3.8 g/dL (2.2-3.9); IMMUNOGLOBULIN A, QN, SERUM 1259 mg/dL (61-437); IMMUNOGLOBULIN G, QN, SERUM 1345 mg/dL (603-1613); IMMUNOGLOBULIN M, QN, SERUM 52 mg/dL (20-172); M-SPIKE 0.3 g/dL (Not Observed); PROTEIN, TOTAL, SERUM 5.7 g/dL (6.0-8.5)
--- NOTE | 2021-10-22 01:30 | NUR ---
Lab called to see about pending immunology results. States they should result today 10/22/21. Will pass onto next RN.
--- NOTE | 2021-10-22 05:56 | NUR ---
PICC line flushes but has no blood return. Lab called to make aware. AM labs drawn by lab at this time. Will pass onto next RN.
[2021-10-22 06:04] LABS: Hematocrit 23.6 % (37.0-53.0); Hemoglobin 7.6 g/dL (13.5-17.5)
[2021-10-22 06:28] LABS: Albumin, Blood 1.4 g/dL (3.4-5.0); Anion Gap 10 mmol/L (6-16); Blood Urea Nitrogen 42 mg/dL (8-24); Bun/Creatinine Ratio 11.1 (12.0-20.0); CO2, Blood 21 mmol/L (21-32); Chloride, Blood 105 mmol/L (98-108); Glomerular Filtration Rate 16 (60-); Glucose, Blood 101 mg/dL (70-99); Magnesium, Blood 1.7 mg/dL (1.6-2.4); Phosphorus, Blood 5.4 mg/dL (2.5-4.9); Potassium, Blood 4.4 mmol/L (3.5-5.5); Sodium, Blood 136 mmol/L (136-145)
--- NOTE | 2021-10-22 18:28 | NUR ---
PT HAS BEEN STABLE HIS SHIFT. TELE, NSR. PT UP TO AMBULATE IN [place] WITH MIN ASSIST. MANNY DIET WELL. VOIDING WITH URINAL. PT HAS NOT NEEDED PAIN OR NAUSEA MEDS THIS SHIFT. CRACKERS WITH MEDS. NEW IMMOBILIZER PLACED. HEALING INCISION ABSENT OF REDNESS OR S/S INFECTION. PICC LINE SL. PT CONT TO HAVE COARSE LS AND SOB WITH EXERTION. NO COUGH. SATS STABLE ON RA.
--- NOTE | 2021-10-23 03:38 | NUR ---
SHIFT SUMMARY A/OX4, SBA WITH FWW. KNEE IMMOBOLIZER IN PLACE TO LLE. 3+ PITTING EDEMA TO L. FOOT, FAINT PULSE NOTED WITH DOPPLER. C/O 8/10 PAIN WITH ASSOCIATED NAUSEA, MEDICATED PER EMAR. BED IN LOWEST POSITION WITH CALL LIGHT IN REACH. WILL CONTINUE TO MONITOR AND REPORT TO ONCOMING RN.
[2021-10-23 03:48] LABS: Hematocrit 21.9 % (37.0-53.0); Hemoglobin 7.2 g/dL (13.5-17.5)
[2021-10-23 04:05] LABS: Albumin, Blood 1.4 g/dL (3.4-5.0); Anion Gap 8 mmol/L (6-16); Blood Urea Nitrogen 45 mg/dL (8-24); CO2, Blood 22 mmol/L (21-32); Calcium, Blood 8.5 mg/dL (8.5-10.1); Chloride, Blood 107 mmol/L (98-108); Creatinine, Blood 3.75 mg/dL (0.60-1.20); Glomerular Filtration Rate 16 (60-); Glucose, Blood 92 mg/dL (70-99); Magnesium, Blood 1.8 mg/dL (1.6-2.4); Phosphorus, Blood 5.7 mg/dL (2.5-4.9); Potassium, Blood 4.9 mmol/L (3.5-5.5); Sodium, Blood 137 mmol/L (136-145)
--- NOTE | 2021-10-23 18:15 | NUR ---
PATIENT CURRENTLY LYING IN BED WITH NO SIGNS OR SYMPTOMS ACUTE DISTRESS NOTED. CALL LIGHT AND WATER IN EASY REACH. ABLE TO MAKE NEEDS AND WANTS KNOWN. IMOBILIZER IN PLACE TO LEFT KNEE. COMPLAINTS OF KNEE AND BACK PAIN, MEDICATED FOR PAIN WITH MEDS BEING EFFECTIVE. POOR APPETITE NOTED. FLUIDS OFFERED AND ENCOURAGED. IS ENCOURAGED. WILL MONITOR.
[2021-10-24 04:01] LABS: Hematocrit 22.8 % (37.0-53.0); Hemoglobin 7.4 g/dL (13.5-17.5)
[2021-10-24 04:31] LABS: Albumin, Blood 1.4 g/dL (3.4-5.0); Anion Gap 8 mmol/L (6-16); Blood Urea Nitrogen 44 mg/dL (8-24); Bun/Creatinine Ratio 11.2 (12.0-20.0); CO2, Blood 21 mmol/L (21-32); Calcium, Blood 8.3 mg/dL (8.5-10.1); Chloride, Blood 109 mmol/L (98-108); Creatinine, Blood 3.94 mg/dL (0.60-1.20); Glomerular Filtration Rate 15 (60-); Glucose, Blood 95 mg/dL (70-99); Magnesium, Blood 1.9 mg/dL (1.6-2.4); Phosphorus, Blood 5.8 mg/dL (2.5-4.9); Sodium, Blood 138 mmol/L (136-145)
--- NOTE | 2021-10-24 04:36 | NUR ---
SHIFT SUMMARY A/OX4, SBA TO BATHROOM WITH FWW. KNEE IMMOBILIZER IN PLACE TO LLE. C/O 06/14 PAIN, MEDICATED PER EMAR. NO ACUTE CHANGES AT THIS TIME. BED IN LOWEST POSITION WITH CALL LIGHT IN REACH. WILL CONTINUE TO MONITOR AND REPORT TO ONCOMING RN.
[2021-10-24] MEDS ORDERED: MIRT15ST PO (10:20)
[2021-10-24] MEDS ORDERED: HYDRA50 PO (10:20)
[2021-10-24] MEDS ORDERED: OXAYDO5 M1 PO (10:21)
[2021-10-24] MEDS ORDERED: VISBIOME 112.51 EACH PO (10:22)
[2021-10-24] MEDS ORDERED: CUBICIN500 MG IV (10:31)
--- NOTE | 2021-10-24 14:19 | NUR ---
DISCHARGE: DISCHARGE INSTUCTIONS GIVEN TO PATIENT AND HIS AT THIS TIME. THEY BOTH VERBALIZED UNDERSTANDING. PATIENT TO CONTINUE IV ANTIBIOTIC THERAPY AT HOME UNTIL 11/06/21, HE IS DISCHARGING WITH PICC LINE TO LEFT ARM IN PLACE, FLUSHES WELL. NO SIGNS OR SYMPTOMS ACUTE DISTRESS NOTED AT THIS TIME. IMMOBILIZER IN PLACE TO LEFT KNEE. HELPED PATIENT GET READY, EXITED VIA WHEELCHAIR TO PERSONAL VEHICLE.
--- NOTE | 2021-10-25 09:06 | NUR ---
Patient is a [facility] patient who was transferred to [facility] on 10/16/2021 due to acute renal failure. Patient discharged yesterday- 10/24/2021 with resumption of home health orders. Gathered supporting documentation for resumption (face sheet, discharge order, med list, and H&P) and faxed to [facility] for review. No further interventions required. Gina Quach Referral Liaison
[2021-10-25 14:10] LABS: M-SPIKE, % 7.3 % (Not Observed); M-SPIKE, MG/24 HR 48.9 mg/24 hr (Not Observed); PROTEIN,TOTAL,URINE 19.7 mg/dL (Not Estab.)
[2021-10-27 13:10] LABS: ANA DIRECT Negative (Negative); ANTIMYELOPEROXIDASE (MPO) ABS <9.0 U/mL (0.0-9.0); ANTIPROTEINASE 3 (PR-3) ABS <3.5 U/mL (0.0-3.5); ATYPICAL PANCA <1:20 titer (Neg:<1:20); CYTOPLASMIC (C-ANCA) <1:20 titer (Neg:<1:20); PERINUCLEAR (P-ANCA) <1:20 titer (Neg:<1:20)
== END 2021-10-24 14:25 | disposition home or self-care (01) | DRG 683 ==
LOC: ER 05:13 → ERHOLD 10:03 → SURS 10:03
PROVIDERS: Emergency Medicine; Internal Medicine Critical Care Medicine; Internal Medicine Nephrology; ADMIT Internal Medicine
DX: N17.9 Acute kidney failure, unspecified (principal); R04.89 Hemorrhage from other sites in respiratory passages; T84.53XA Infection and inflammatory reaction due to internal right knee prosthesis, initial encounter; D61.818 Other pancytopenia; E87.1 Hypo-osmolality and hyponatremia; E87.2 Acidosis; D89.1 Cryoglobulinemia; K74.60 Unspecified cirrhosis of liver; Z20.822 Contact with and (suspected) exposure to COVID-19; B95.62 Methicillin resistant Staphylococcus aureus infection as the cause of diseases classified elsewhere; J99 Respiratory disorders in diseases classified elsewhere; Z88.8 Allergy status to other drugs, medicaments and biological substances; Z88.5 Allergy status to narcotic agent; E78.5 Hyperlipidemia, unspecified; Z98.890 Other specified postprocedural states; K21.9 Gastro-esophageal reflux disease without esophagitis; E66.9 Obesity, unspecified; Z96.652 Presence of left artificial knee joint; Z79.899 Other long term (current) drug therapy; E88.09 Other disorders of plasma-protein metabolism, not elsewhere classified; I35.0 Nonrheumatic aortic (valve) stenosis; E83.39 Other disorders of phosphorus metabolism; D64.9 Anemia, unspecified; E86.9 Volume depletion, unspecified
CPT/HCPCS: 0241U; 36415; 51798; 71046; 71250; 73560-LT; 76770; 80053; 80069; 80076; 80202; 81001; 81050; 82550; 82595; 82728; 82784; 83516; 83520; 83540; 83550; 83605; 83690; 83735; 83880; 84100; 84145; 84156; 84165; 84166; 84484; 84550; 85014; 85018; 85025; 85027; 85651; 86038; 86140; 86160; 86256; 86334; 86335; 87040; 87449; 93005; 93010; 93308; 94762; 97110; 97116; 97162; 97530; 99285-25; A9270; J0360; J0456; J0692; J0696; J0878; J0881; J1644; J1650; J1940; J1956; J2020; J2405; J3370; J3475; J7030; J7050

== ENCOUNTER → 2021-10-27 | Outpatient (CLI) | payer MEDICARE ==
[~2021-10-27] MED LIST changes: +ACET500 PO; +CUBICIN500 MG IV; +Calcium Carbon500 MG PO; +ENOX40I SC; +GABA100 PO; +HYDRA50 PO; +MIRT15ST PO; +OXAYDO5 M1 PO; +RIFA150 PO; +VISBIOME 112.51 EACH PO
[2021-10-27 13:30] LABS: BASOPHILS ABSOLUTE AUTO 0.03 K/mm3 (0.00-0.23); BASOPHILS PERCENT AUTO 1 % (0-2); EOSINOPHILS ABSOLUTE AUTO 0.13 K/mm3 (0.00-0.68); EOSINOPHILS PERCENT AUTO 3 % (0-6); Hemoglobin 7.3 g/dL (13.5-17.5); IMMATURE GRAN ABSOLUTE AUTO 0.01 K/mm3 (0.00-0.10); IMMATURE GRAN PERCENT AUTO 0 % (0-1); LYMPHOCYTES ABSOLUTE AUTO 0.64 K/mm3 (0.84-5.20); LYMPHOCYTES PERCENT AUTO 17 % (21-46); MONOCYTES PERCENT AUTO 10 % (4-13); Mean Corpuscular HGB 27.8 pg (26.0-34.0); Mean Corpuscular HGB Conc 31.7 g/dL (31.5-36.5); Mean Corpuscular Volume 88 fL (80-100); Mean Platelet Volume 9.7 fL (9.1-12.4); NEUTROPHILS ABSOLUTE AUTO 2.64 K/mm3 (1.96-9.15); NEUTROPHILS PERCENT AUTO 69 % (41-73); Platelet Count 107 K/mm3 (150-400); RDW Coefficient Variation 16.7 % (11.7-14.2); RDW Standard Deviation 52.8 fL (35.1-46.3); Red Blood Cell Count 2.63 M/mm3 (4.30-5.90); White Blood Cell Count 3.85 K/mm3 (4.00-11.30)
[2021-10-27 13:36] LABS: Albumin, Blood 1.5 g/dL (3.4-5.0); Albumin/Globulin Ratio 0.3 (0.8-1.8); Bilirubin, Total 0.4 mg/dL (0.1-1.0); Bun/Creatinine Ratio 12.1 (12.0-20.0); C-REACTIVE PROTEIN, EXT RANGE 3.51 mg/dL (0.000-0.300); Calcium, Blood 8.8 mg/dL (8.5-10.1); Creatinine, Blood 3.8 mg/dL (0.60-1.20); Globulin, Blood 5.6 g/dL (2.2-4.0); Potassium, Blood 5.3 mmol/L (3.5-5.5); Total Protein, Blood 7.1 g/dL (6.4-8.2)
== END | disposition home or self-care (01) ==
LOC: LAB HH 10:30
PROVIDERS: Internal Medicine
DX: T84.013A Broken internal left knee prosthesis, initial encounter (principal)
CPT/HCPCS: 80053; 82550; 85025; 86140

== ENCOUNTER → 2021-11-09 | Outpatient (CLI) | payer MEDICARE ==
[2021-11-09 17:31] LABS: Creatinine Urine 45.1 mg/dL (27.00-270.00); Microalbumin, Urine Quant. 27.8 mg/L (0.000-20.000); Protein, Urine Quantitative 22.8 mg/dL (0.0-11.9)
== END | disposition home or self-care (01) ==
LOC: LAB 07:35 → LAB SHORT 07:35 → LAB FUT 11-07 13:30
PROVIDERS: Internal Medicine Nephrology
DX: N18.30 Chronic kidney disease, stage 3 unspecified (principal); D63.1 Anemia in chronic kidney disease; N25.81 Secondary hyperparathyroidism of renal origin; E55.9 Vitamin D deficiency, unspecified; E78.00 Pure hypercholesterolemia, unspecified; G60.9 Hereditary and idiopathic neuropathy, unspecified; R76.9 Abnormal immunological finding in serum, unspecified; R94.5 Abnormal results of liver function studies
CPT/HCPCS: 81050; 82043; 82570; 84156

== ENCOUNTER 2021-12-31 16:59 | Emergency (ER) | payer MEDICARE ==
[~2021-12-31] VITALS: Ht 177.8 cm; Wt 113.4 kg
== END 2021-12-31 21:20 | disposition home or self-care (01) ==
LOC: ER 16:59
DX: M97.12XA Periprosthetic fracture around internal prosthetic left knee joint, initial encounter (principal); Z79.899 Other long term (current) drug therapy; Z88.8 Allergy status to other drugs, medicaments and biological substances; Z88.5 Allergy status to narcotic agent; W18.30XD Fall on same level, unspecified, subsequent encounter
CPT/HCPCS: 29505; 73560-LT; 73590; 93005; 93010; 96374; 96375; 96376; 99284-25; A9270; J3010

== ENCOUNTER 2023-06-20 10:39 | Inpatient (IN) | payer OTHER, MEDICARE ==
[~2023-06-20] VITALS: Ht 177.8 cm; Wt 107.1 kg
[2023-06-20 12:40] LABS: BASOPHILS ABSOLUTE AUTO 0.07 K/mm3 (0.00-0.23); BASOPHILS PERCENT AUTO 1 % (0-2); EOSINOPHILS ABSOLUTE AUTO 0.06 K/mm3 (0.00-0.68); EOSINOPHILS PERCENT AUTO 1 % (0-6); Hematocrit 30.4 % (37.0-53.0); Hemoglobin 9.9 g/dL (13.5-17.5); IMMATURE GRAN ABSOLUTE AUTO 0.01 K/mm3 (0.00-0.10); IMMATURE GRAN PERCENT AUTO 0 % (0-1); LYMPHOCYTES PERCENT AUTO 19 % (21-46); MONOCYTES ABSOLUTE AUTO 0.41 K/mm3 (0.16-1.47); MONOCYTES PERCENT AUTO 8 % (4-13); Mean Corpuscular HGB 27.9 pg (26.0-34.0); Mean Corpuscular HGB Conc 32.6 g/dL (31.5-36.5); Mean Corpuscular Volume 86 fL (80-100); NEUTROPHILS ABSOLUTE AUTO 3.87 K/mm3 (1.96-9.15); NEUTROPHILS PERCENT AUTO 71 % (41-73); Platelet Count 85 K/mm3 (150-400); RDW Standard Deviation 63.2 fL (35.1-46.3); Red Blood Cell Count 3.55 M/mm3 (4.30-5.90); White Blood Cell Count 5.42 K/mm3 (4.00-11.30)
[2023-06-20 12:56] LABS: Albumin, Blood 2.2 g/dL (3.4-5.0); Albumin/Globulin Ratio 0.6 (0.8-1.8); Bilirubin, Total 0.5 mg/dL (0.1-1.0); Bun/Creatinine Ratio 17.1 (12.0-20.0); Calcium, Blood 8.3 mg/dL (8.5-10.1); Creatinine, Blood 2.63 mg/dL (0.60-1.20); Globulin, Blood 3.4 g/dL (2.2-4.0); Potassium, Blood 4.8 mmol/L (3.5-5.5); Total Protein, Blood 5.6 g/dL (6.4-8.2)
[2023-06-20 16:08] VITALS: BP 109/63
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
[2023-06-20 19:26] VITALS: BP 138/70
--- NOTE | 2023-06-20 19:51 | NUR ---
SHIFT SUMMARY S/P L HIP FX, A/OX4, VSS, TOLERATING PO, PAIN POORLY MANAGED BUT MD WAS CONTACTED TO ADDRESS THIS, PLAN FOR NPO AT MIDNIGHT AND SURGERY TOMORROW. CALL LIGHT IN REACH, REPORT GIVEN TO HALLE FIGUEROA.
[2023-06-21 01:22] VITALS: BP 158/66
[2023-06-21 03:28] VITALS: BP 158/74
--- NOTE | 2023-06-21 04:13 | NUR ---
SHIFT SUMMARY VSS. PT SLEPT LITTLE T/O THE NIGHT. EXPERIENCED DIFFICULTIES WITH PAIN CONTROL. PT MEDICATED REGULARLY BUT STILL REPORTS 9 OR 10/10 PAIN. UNABLE TO BE REPOSITIONED D/T PAIN, ATTEMPTED K PAD PER REQUEST OF PT WITH POOR RESULTS. PT VOICED MANY TIMES THAT HE "JUST WANTS TO BE KNOCKED OUT" AND DOSEN'T UNDERSTAND WHY THAT CANT HAPPEN. PT EDUCATED THAT THE GOAL OF PAIN CONTROL IS TO USE ENOUGH MEDICATION TO FEEL TOLLERABLE DISCOMFORT, AND THAT A FRACTURED HIP IS UNFORTUNETLY GOING TO BE PAINFUL UNTIL FIXED. LLe REMAINS EXTERNALLY ROTATED, STRONG PULSE AND APPROPRIATE CAP REFILL. PT ABLE TO MOVE TOES ON COMMAND. PT HAS REMAINED NPO SINCE 0000, IV FLUDIS INFUSING. MULTIPLE SMALL VOIDS NOTED, PT REPORTS PASSING FLATTUS. NO N/V. PLAN FOR SURGERY TODAY. NO IGNTION SOURCE NOTED.
[2023-06-21 05:26] LABS: BASOPHILS ABSOLUTE AUTO 0.04 K/mm3 (0.00-0.23); BASOPHILS PERCENT AUTO 1 % (0-2); EOSINOPHILS ABSOLUTE AUTO 0.03 K/mm3 (0.00-0.68); EOSINOPHILS PERCENT AUTO 0 % (0-6); Hematocrit 34.5 % (37.0-53.0); Hemoglobin 11.1 g/dL (13.5-17.5); IMMATURE GRAN ABSOLUTE AUTO 0.02 K/mm3 (0.00-0.10); IMMATURE GRAN PERCENT AUTO 0 % (0-1); LYMPHOCYTES ABSOLUTE AUTO 0.94 K/mm3 (0.84-5.20); LYMPHOCYTES PERCENT AUTO 13 % (21-46); MONOCYTES PERCENT AUTO 9 % (4-13); Mean Corpuscular HGB Conc 32.2 g/dL (31.5-36.5); Mean Corpuscular Volume 87 fL (80-100); NEUTROPHILS ABSOLUTE AUTO 5.38 K/mm3 (1.96-9.15); NEUTROPHILS PERCENT AUTO 77 % (41-73); Platelet Count 85 K/mm3 (150-400); RDW Coefficient Variation 19.9 % (11.7-14.2); RDW Standard Deviation 64.1 fL (35.1-46.3); Red Blood Cell Count 3.97 M/mm3 (4.30-5.90); White Blood Cell Count 7.01 K/mm3 (4.00-11.30)
[2023-06-21 05:49] LABS: Bun/Creatinine Ratio 18.6 (12.0-20.0); Calcium, Blood 8.6 mg/dL (8.5-10.1); Creatinine, Blood 2.69 mg/dL (0.60-1.20); Potassium, Blood 5.5 mmol/L (3.5-5.5)
[2023-06-21 07:24] VITALS: BP 154/70
--- NOTE | 2023-06-21 12:50 | NUR ---
PT TO DAY SURGERY FOR PROCEDURE. AFTER CONSULTATION WITH ANESTHESIA, PROCEDURE CANCELLED AND BEING TRANSFERRED TO [facility].
--- NOTE | 2023-06-21 12:52 | NUR ---
PT RETURNED TO SURGICAL FLOOR AT 1250.
[2023-06-21 14:33] VITALS: BP 167/81
[2023-06-21 19:23] VITALS: BP 148/77
--- NOTE | 2023-06-21 19:38 | NUR ---
SHIFT SUMMARY S/P L HIP FX, A/OX4, VSS, PAIN MINIMALLY MANAGED DUE TO LOW PAIN TOLERANCE AND BUSY FLOOR TODAY, ATTEMPTED TO CONTACT SAMPLE PREP TECHNICIAN MD TO DISCUSS GETTING HIM A 911 TELECOMMUNICATOR TO HELP PROVIDE BETTER/CONSISTENT PAIN MANAGEMENT BUT HE WAS BUSY, DISCUSSED THIS WITH NOC RN WHO WILL ATTEMPT TO REACH OUT AGAIN FOR THIS. PT UPDATED ON PLAN OF CARE IN GETTING TRANSFERRED TO A HIGHER LEVEL OF CARE FACILITY TO HAVE HIS SURGERY DONE, BUCKS TRACTION SET UP AFTER DISCUSSION WITH ORTHO PER THEIR RECOMMENDATION. NO OTHER EVENTS THIS SHIFT, CALL LIGHT IN REACH, REPORT GIVEN TO NOC RN.
[2023-06-22 04:16] VITALS: BP 129/74
[2023-06-22 04:37] LABS: BASOPHILS ABSOLUTE AUTO 0.07 K/mm3 (0.00-0.23); BASOPHILS PERCENT AUTO 1 % (0-2); EOSINOPHILS ABSOLUTE AUTO 0.19 K/mm3 (0.00-0.68); EOSINOPHILS PERCENT AUTO 3 % (0-6); Hematocrit 34.3 % (37.0-53.0); Hemoglobin 10.8 g/dL (13.5-17.5); IMMATURE GRAN ABSOLUTE AUTO 0.01 K/mm3 (0.00-0.10); IMMATURE GRAN PERCENT AUTO 0 % (0-1); LYMPHOCYTES ABSOLUTE AUTO 1.04 K/mm3 (0.84-5.20); LYMPHOCYTES PERCENT AUTO 18 % (21-46); MONOCYTES ABSOLUTE AUTO 0.63 K/mm3 (0.16-1.47); MONOCYTES PERCENT AUTO 11 % (4-13); Mean Corpuscular HGB 27.8 pg (26.0-34.0); Mean Corpuscular HGB Conc 31.5 g/dL (31.5-36.5); Mean Corpuscular Volume 88 fL (80-100); Mean Platelet Volume 11.2 fL (9.1-12.4); NEUTROPHILS ABSOLUTE AUTO 3.95 K/mm3 (1.96-9.15); NEUTROPHILS PERCENT AUTO 67 % (41-73); Platelet Count 70 K/mm3 (150-400); RDW Coefficient Variation 20.2 % (11.7-14.2); RDW Standard Deviation 65.3 fL (35.1-46.3); Red Blood Cell Count 3.89 M/mm3 (4.30-5.90); White Blood Cell Count 5.89 K/mm3 (4.00-11.30)
[2023-06-22 05:08] LABS: Albumin, Blood 2.4 g/dL (3.4-5.0); Anion Gap 5 mmol/L (6-16); Blood Urea Nitrogen 51 mg/dL (8-24); Bun/Creatinine Ratio 18.3 (12.0-20.0); CO2, Blood 21 mmol/L (21-32); Calcium, Blood 8.7 mg/dL (8.5-10.1); Chloride, Blood 118 mmol/L (98-108); Creatinine, Blood 2.79 mg/dL (0.60-1.20); Glomerular Filtration Rate 23 (60-); Glucose, Blood 94 mg/dL (70-99); Phosphorus, Blood 4.6 mg/dL (2.5-4.9); Potassium, Blood 5.6 mmol/L (3.5-5.5); Sodium, Blood 144 mmol/L (136-145)
--- NOTE | 2023-06-22 05:20 | NUR ---
SHIFT SUMMARY VSS. SENSATION AND CIRCUALTION REMAIN INTACT IN LLE. BUCKS TRACTION REMAINS IN PLACE. PT MEDICATED FOR PAIN REGUALRLY T/O THE NIGHT WITH IV MEDICATION AND ORALS. PT TOLLERATING PO INTAKE W/O N/V, VOIDING W/O DIFFICULTY. NO BM NOTED. PT HAS BEEN SHIFTING SELF IN BED T/O THE NIGHT FOR PRESSURE SORE PREVENTION. NO ACUTE EVENTS NOTED. AWAITING CALL FOR OPEN BED FOR COBRA TRANSFER.
[2023-06-22 07:12] VITALS: BP 118/78
--- NOTE | 2023-06-22 11:58 | NUR ---
Pt. is awake in bed and welcomes my visit. Spouse is present. Pt. is pleasant but he and spouse are unsettled about the need to be transferred to [facility]. Listen with empathy and a calming presence. Facilitated a life review and established rapport. Pt. displayed evidence ofawareness and enagement but verbalized that he was feeling significant pain in his hip. Prayed with Pt. Both Pt. and spouse verbalize gratitude for the spiritual care visit.
[2023-06-22 14:30] VITALS: BP 148/74
[2023-06-22] MEDS ORDERED: LOKELMA10 GM PO (14:39)
[2023-06-22 18:19] VITALS: BP 148/74
--- NOTE | 2023-06-22 18:39 | NUR ---
COBRA TRANSFER: PACKET PRINTED AND TRANSFER CONSENT SIGNED. PT NOTIFIED OF TRANSFER. EMS GIVEN REPORT ON PT BY THIS RN. PT MOVED TO [facility]. PT LEFT UNIT VIA STRETCHER WITH EMS AT 1830.
--- NOTE | 2023-06-22 19:32 | NUR ---
REPORT PASSED TO RN AT [facility] IN [place] AT THIS TIME
== END 2023-06-22 19:08 | disposition short-term general hospital (02) | DRG 536 ==
LOC: ER 10:39 → SURS 14:13
PROVIDERS: Emergency Medicine; ADMIT Family Medicine
DX: S72.002A Fracture of unspecified part of neck of left femur, initial encounter for closed fracture (principal); N18.4 Chronic kidney disease, stage 4 (severe); I12.9 Hypertensive chronic kidney disease with stage 1 through stage 4 chronic kidney disease, or unspecified chronic kidney disease; D63.1 Anemia in chronic kidney disease; D69.6 Thrombocytopenia, unspecified; K74.60 Unspecified cirrhosis of liver; E66.9 Obesity, unspecified; I27.20 Pulmonary hypertension, unspecified; W01.0XXA Fall on same level from slipping, tripping and stumbling without subsequent striking against object, initial encounter; I95.9 Hypotension, unspecified; E87.5 Hyperkalemia; I35.0 Nonrheumatic aortic (valve) stenosis; K21.9 Gastro-esophageal reflux disease without esophagitis; Z90.89 Acquired absence of other organs; Z98.890 Other specified postprocedural states; Z96.652 Presence of left artificial knee joint; Z87.19 Personal history of other diseases of the digestive system; Z88.5 Allergy status to narcotic agent; Z88.8 Allergy status to other drugs, medicaments and biological substances; Z79.899 Other long term (current) drug therapy; Z79.891 Long term (current) use of opiate analgesic; Z68.33 Body mass index [BMI] 33.0-33.9, adult
CPT/HCPCS: 36415; 73502; 73552; 73562-LT; 80048; 80053; 80069; 84132; 85025; 85651; 86140; 93005; 93010; 96361; 96374; 96375; 96376; 99285-25; A9270; J0612; J2405; J3010; J7030

== ENCOUNTER 2023-07-17 13:12 | Emergency (ER) | payer MEDICARE ==
[~2023-07-17] VITALS: Ht 177.8 cm; Wt 110.2 kg
[~2023-07-17 13:12] MED LIST changes: +LOKELMA10 GM PO
[2023-07-17 17:51] VITALS: BP 116/60
== END 2023-07-17 17:51 | disposition home or self-care (01) ==
LOC: ER 13:12
DX: I89.0 Lymphedema, not elsewhere classified (principal); I10 Essential (primary) hypertension; E66.9 Obesity, unspecified; Z68.34 Body mass index [BMI] 34.0-34.9, adult; Z88.8 Allergy status to other drugs, medicaments and biological substances; Z88.5 Allergy status to narcotic agent; Z79.899 Other long term (current) drug therapy
CPT/HCPCS: 93971; 99283-25

== ENCOUNTER → 2023-10-11 | Outpatient (CLI) | payer MEDICARE ==
[2023-10-11 19:02] LABS: Alanine Aminotransfer (ALT/SGP 14 U/L (12-78); Albumin, Blood 1.9 g/dL (3.4-5.0); Albumin/Globulin Ratio 0.4 (0.8-1.8); Alk Phos 212 U/L (50-136); Anion Gap 9 mmol/L (6-16); Aspartate Aminotrans (AST/SGOT 27 U/L (12-37); Bilirubin, Direct 0.1 mg/dL (0.0-0.3); Bilirubin, Indirect 0.2 mg/dL (0.1-0.7); Bilirubin, Total 0.3 mg/dL (0.1-1.0); Blood Urea Nitrogen 52 mg/dL (8-24); CO2, Blood 25 mmol/L (21-32); Calcium, Blood 7.8 mg/dL (8.5-10.1); Chloride, Blood 107 mmol/L (98-108); Globulin, Blood 4.3 g/dL (2.2-4.0); Glucose, Blood 106 mg/dL (70-99); Potassium, Blood 3.7 mmol/L (3.5-5.5); Sodium, Blood 141 mmol/L (136-145); Total Protein, Blood 6.2 g/dL (6.4-8.2)
[2023-10-11 19:04] LABS: Bun/Creatinine Ratio 20.6 (12.0-20.0); Creatinine, Blood 2.52 mg/dL (0.60-1.20); Glomerular Filtration Rate 27 (60-)
[2023-10-11 19:10] LABS: BASOPHILS ABSOLUTE AUTO 0.06 K/mm3 (0.00-0.23); BASOPHILS PERCENT AUTO 1 % (0-2); EOSINOPHILS ABSOLUTE AUTO 0.18 K/mm3 (0.00-0.68); EOSINOPHILS PERCENT AUTO 3 % (0-6); Hematocrit 26.7 % (37.0-53.0); Hemoglobin 8.3 g/dL (13.5-17.5); IMMATURE GRAN ABSOLUTE AUTO 0.02 K/mm3 (0.00-0.10); IMMATURE GRAN PERCENT AUTO 0 % (0-1); LYMPHOCYTES ABSOLUTE AUTO 1.25 K/mm3 (0.84-5.20); LYMPHOCYTES PERCENT AUTO 21 % (21-46); MONOCYTES ABSOLUTE AUTO 0.41 K/mm3 (0.16-1.47); MONOCYTES PERCENT AUTO 7 % (4-13); Mean Corpuscular HGB 27.3 pg (26.0-34.0); Mean Corpuscular HGB Conc 31.1 g/dL (31.5-36.5); Mean Corpuscular Volume 88 fL (80-100); NEUTROPHILS ABSOLUTE AUTO 4.15 K/mm3 (1.96-9.15); NEUTROPHILS PERCENT AUTO 68 % (41-73); Platelet Count 149 K/mm3 (150-400); RDW Coefficient Variation 15.6 % (11.7-14.2); RDW Standard Deviation 49.8 fL (35.1-46.3); Red Blood Cell Count 3.04 M/mm3 (4.30-5.90); White Blood Cell Count 6.07 K/mm3 (4.00-11.30)
[2023-10-11 19:15] LABS: Albumin, Blood 1.8 g/dL (3.4-5.0); Anion Gap 9 mmol/L (6-16); Blood Urea Nitrogen 52 mg/dL (8-24); Bun/Creatinine Ratio 21.1 (12.0-20.0); CO2, Blood 25 mmol/L (21-32); Calcium, Blood 8.1 mg/dL (8.5-10.1); Chloride, Blood 107 mmol/L (98-108); Creatinine, Blood 2.47 mg/dL (0.60-1.20); Glomerular Filtration Rate 27 (60-); Glucose, Blood 106 mg/dL (70-99); Phosphorus, Blood 4.6 mg/dL (2.5-4.9); Potassium, Blood 3.7 mmol/L (3.5-5.5); Sodium, Blood 141 mmol/L (136-145)
== END | disposition home or self-care (01) ==
LOC: LAB SHORT 17:35 → LAB 17:35
PROVIDERS: Internal Medicine; Internal Medicine Nephrology
DX: Z12.5 Encounter for screening for malignant neoplasm of prostate (principal); N18.4 Chronic kidney disease, stage 4 (severe); D63.1 Anemia in chronic kidney disease; R79.89 Other specified abnormal findings of blood chemistry
CPT/HCPCS: 80048; 80053; 80069; 80076; 82248; 84100; 85018; 85025; G0103

== ENCOUNTER 2023-11-29 18:22 | Emergency (ER) | payer MEDICARE ==
[~2023-11-29] VITALS: Ht 177.8 cm; Wt 99.8 kg
[2023-11-29 19:29] LABS: BASOPHILS ABSOLUTE AUTO 0.03 K/mm3 (0.00-0.23); BASOPHILS PERCENT AUTO 1 % (0-2); EOSINOPHILS ABSOLUTE AUTO 0.08 K/mm3 (0.00-0.68); EOSINOPHILS PERCENT AUTO 1 % (0-6); Hematocrit 33.6 % (37.0-53.0); Hemoglobin 10.6 g/dL (13.5-17.5); IMMATURE GRAN ABSOLUTE AUTO 0.02 K/mm3 (0.00-0.10); IMMATURE GRAN PERCENT AUTO 0 % (0-1); LYMPHOCYTES ABSOLUTE AUTO 0.83 K/mm3 (0.84-5.20); LYMPHOCYTES PERCENT AUTO 14 % (21-46); MONOCYTES ABSOLUTE AUTO 0.52 K/mm3 (0.16-1.47); MONOCYTES PERCENT AUTO 9 % (4-13); Mean Corpuscular HGB 26.3 pg (26.0-34.0); Mean Corpuscular HGB Conc 31.5 g/dL (31.5-36.5); Mean Corpuscular Volume 83 fL (80-100); Mean Platelet Volume 10.5 fL (9.1-12.4); NEUTROPHILS ABSOLUTE AUTO 4.46 K/mm3 (1.96-9.15); NEUTROPHILS PERCENT AUTO 75 % (41-73); Platelet Count 133 K/mm3 (150-400); RDW Coefficient Variation 17.9 % (11.7-14.2); Red Blood Cell Count 4.03 M/mm3 (4.30-5.90); White Blood Cell Count 5.94 K/mm3 (4.00-11.30)
[2023-11-29 19:52] LABS: Albumin/Globulin Ratio 0.4 (0.8-1.8); Bilirubin, Total 0.6 mg/dL (0.1-1.0); Bun/Creatinine Ratio 20.1 (12.0-20.0); Calcium, Blood 8.3 mg/dL (8.5-10.1); Creatinine, Blood 2.44 mg/dL (0.60-1.20); Globulin, Blood 5.4 g/dL (2.2-4.0); Potassium, Blood 4.1 mmol/L (3.5-5.5); Total Protein, Blood 7.4 g/dL (6.4-8.2)
[2023-11-29] MEDS ORDERED: MINO50 PO (20:16)
[2023-11-29] MEDS ORDERED: BUMETANIDE2 M6 PO (20:18)
[2023-11-29] MEDS ORDERED: TAMSULOSIN HCL0.4 M1 PO (20:18)
[2023-11-29 22:30] VITALS: BP 129/68
[2023-11-29] MEDS ORDERED: OXAYDO5 M1 PO (22:37)
== END 2023-11-29 22:54 | disposition home or self-care (01) ==
LOC: ER 18:22
PROVIDERS: Student in an Organized Health Care Education/Training Program
DX: S32.049A Unspecified fracture of fourth lumbar vertebra, initial encounter for closed fracture (principal); I10 Essential (primary) hypertension; E78.5 Hyperlipidemia, unspecified; K21.9 Gastro-esophageal reflux disease without esophagitis; E66.9 Obesity, unspecified; Z68.31 Body mass index [BMI] 31.0-31.9, adult; Z79.899 Other long term (current) drug therapy; Z88.5 Allergy status to narcotic agent; Z88.8 Allergy status to other drugs, medicaments and biological substances; W18.39XA Other fall on same level, initial encounter; Y93.89 Activity, other specified
CPT/HCPCS: 72100; 73502; 80053; 85025; 93005; 93010; 96374; 96375; 99284-25; A9270; J2270; J3010

== ENCOUNTER 2024-07-31 09:48 | Inpatient (IN) | payer MEDICARE ==
[~2024-07-31] VITALS: Ht 177.8 cm; Wt 104.7 kg
[~2024-07-31 09:48] MED LIST changes: +MINO50 PO
[2024-07-31 10:16] LABS: BASOPHILS ABSOLUTE AUTO 0.05 K/mm3 (0.00-0.23); BASOPHILS PERCENT AUTO 1 % (0-2); EOSINOPHILS ABSOLUTE AUTO 0.09 K/mm3 (0.00-0.68); EOSINOPHILS PERCENT AUTO 3 % (0-6); Hematocrit 29.8 % (37.0-53.0); Hemoglobin 9.5 g/dL (13.5-17.5); IMMATURE GRAN ABSOLUTE AUTO 0.01 K/mm3 (0.00-0.10); IMMATURE GRAN PERCENT AUTO 0 % (0-1); LYMPHOCYTES PERCENT AUTO 25 % (21-46); MONOCYTES ABSOLUTE AUTO 0.26 K/mm3 (0.16-1.47); MONOCYTES PERCENT AUTO 7 % (4-13); Mean Corpuscular HGB 26.8 pg (26.0-34.0); Mean Corpuscular HGB Conc 31.9 g/dL (31.5-36.5); Mean Corpuscular Volume 84 fL (80-100); NEUTROPHILS ABSOLUTE AUTO 2.33 K/mm3 (1.96-9.15); NEUTROPHILS PERCENT AUTO 64 % (41-73); Platelet Count 127 K/mm3 (150-400); RDW Coefficient Variation 18.7 % (11.7-14.2); Red Blood Cell Count 3.54 M/mm3 (4.30-5.90); White Blood Cell Count 3.64 K/mm3 (4.00-11.30)
[2024-07-31 10:17] LABS: Source, Urine Straight Cath
[2024-07-31 10:25] LABS: Appearance, Urine Clear (Clear); Bilirubin, Urine Neg (Neg); Blood, Urine 1+ (Neg); Color, Urine Yellow (P-Yellow); Glucose Qualitative, Urine Neg (Neg); Ketones, Urine Neg (Neg); Leukocyte Esterase, Urine 3+ (Neg); Nitrite, Urine Neg (Neg); Protein, Urine Neg (Neg); Urobilinogen, Urine NORM (Normal)
[2024-07-31 10:52] LABS: Albumin, Blood 2.2 g/dL (3.4-5.0); Albumin/Globulin Ratio 0.4 (0.8-1.8); Bilirubin, Total 0.5 mg/dL (0.1-1.0); Bun/Creatinine Ratio 18.6 (12.0-20.0); Calcium, Blood 8.9 mg/dL (8.5-10.1); Creatinine, Blood 2.79 mg/dL (0.60-1.20); Potassium, Blood 3.9 mmol/L (3.5-5.5); Total Protein, Blood 7.2 g/dL (6.4-8.2)
[2024-07-31 10:57] LABS: Squamous Epithelial Cells Rare /hpf (Few); White Blood Cells, Urine TNTC /hpf (0-5)
[2024-07-31 10:58] LABS: Bacteria Few /hpf
[2024-07-31] MEDS ORDERED: Lactulose 20 GM/30 ML UDC PO ONE (11:15)
[2024-07-31] MEDS ORDERED: CefTRIAXone Sodium 1,000 MG in NS 100 ML IV ONE (11:15)
[2024-07-31] MEDS ORDERED: NS 1,000 ML IV SCH (11:25)
[2024-07-31] MEDS ORDERED: CefTRIAXone Sodium 2,000 MG in NS 100 ML IV ONE (11:30)
[2024-07-31] MEDS ORDERED: METOPROLOL SUCC25 MG PO (14:02)
[2024-07-31] MEDS ORDERED: MINOCYCLINE HC100 M2 PO (14:02)
[2024-07-31] MEDS ORDERED: Methocarbamol500 MG PO (14:02)
[2024-07-31] MEDS ORDERED: OMEP20ER PO (14:02)
[2024-07-31] MEDS ORDERED: OXYC5 PO (14:02)
[2024-07-31] MEDS ORDERED: LOKELMA10 GM PO (14:03)
[2024-07-31] MEDS ORDERED: Ondansetron HCl 2 MG / ML 2ML Vial IV PRN (15:15)
[2024-07-31] MEDS ORDERED: Lactated Ringer's 1,000 ML IV SCH (15:15)
[2024-07-31] MEDS ORDERED: FLU VACC TS2024-25(6MOS UP)/PF 45 MCG/0.5 ML SYRINGE IM SCH (15:15)
[2024-07-31] MEDS ORDERED: OxyCODONE HCL 5 MG TAB PO PRN (15:20)
[2024-07-31] MEDS ORDERED: Lactulose 20 GM/30 ML UDC PO SCH (17:00)
[2024-07-31] MEDS ORDERED: TAMSULOSIN HCL0.4 M1 PO (17:04)
[2024-07-31] MEDS ORDERED: BUMETANIDE2 M6 PO (17:05)
[2024-07-31 19:25] VITALS: BP 119/55
--- NOTE | 2024-07-31 19:29 | NUR ---
Pt admited to floor at 1635, VSS, A-Ox4 with slowed response, denies SOB, denies any pain, ambulates to bedside commode with 2x assist, on RA. Lungs diminished, heart regular, bowel sounds normative, contient of 1 large formed dark stool during shift. Pt can make needs known ,call vigil in hand, bed in lowest position.
[2024-07-31] MEDS ORDERED: Methocarbamol 500 MG Tab PO SCH (19:41)
[2024-08-01 04:39] VITALS: BP 195/91
[2024-08-01 04:46] VITALS: BP 115/68
[2024-08-01 05:41] LABS: BASOPHILS ABSOLUTE AUTO 0.03 K/mm3 (0.00-0.23); BASOPHILS PERCENT AUTO 1 % (0-2); EOSINOPHILS ABSOLUTE AUTO 0.14 K/mm3 (0.00-0.68); EOSINOPHILS PERCENT AUTO 4 % (0-6); IMMATURE GRAN ABSOLUTE AUTO 0.01 K/mm3 (0.00-0.10); IMMATURE GRAN PERCENT AUTO 0 % (0-1); LYMPHOCYTES ABSOLUTE AUTO 1.07 K/mm3 (0.84-5.20); LYMPHOCYTES PERCENT AUTO 33 % (21-46); MONOCYTES ABSOLUTE AUTO 0.28 K/mm3 (0.16-1.47); MONOCYTES PERCENT AUTO 9 % (4-13); Mean Corpuscular HGB 26.8 pg (26.0-34.0); Mean Corpuscular Volume 84 fL (80-100); Mean Platelet Volume 10.7 fL (9.1-12.4); NEUTROPHILS ABSOLUTE AUTO 1.67 K/mm3 (1.96-9.15); NEUTROPHILS PERCENT AUTO 52 % (41-73); Platelet Count 115 K/mm3 (150-400); RDW Standard Deviation 57.5 fL (35.1-46.3); Red Blood Cell Count 2.99 M/mm3 (4.30-5.90)
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
[2024-08-01] MEDS ORDERED: Omeprazole 20 MG CapCR PO SCH (06:00)
[2024-08-01 06:08] LABS: Albumin, Blood 1.9 g/dL (3.4-5.0); Albumin/Globulin Ratio 0.5 (0.8-1.8); Bilirubin, Total 0.6 mg/dL (0.1-1.0); Bun/Creatinine Ratio 17.6 (12.0-20.0); Calcium, Blood 8.5 mg/dL (8.5-10.1); Creatinine, Blood 2.67 mg/dL (0.60-1.20); Globulin, Blood 4.1 g/dL (2.2-4.0); Magnesium, Blood 2.4 mg/dL (1.6-2.4); Potassium, Blood 3.8 mmol/L (3.5-5.5)
[2024-08-01 07:25] VITALS: BP 132/70
[2024-08-01] MEDS ORDERED: CefTRIAXone Sodium 1,000 MG in NS 100 ML IV SCH (09:00)
[2024-08-01] MEDS ORDERED: Metoprolol Succinate 25 MG TABCR PO SCH (09:00)
[2024-08-01] MEDS ORDERED: Heparin Sodium,Porcine 5,000 UNIT/0.5 ML SDV SC SCH (09:00)
[2024-08-01] MEDS ORDERED: NS 250 ML IV PRN (10:25)
--- NOTE | 2024-08-01 11:38 | NUR ---
PATIENT ASKING TO GO BACK TO BED. REMINDED HIM PT ASKED HIM TO STAY SITTING UP FOR MEALS AND LUNCH WILL BE HERE SOON. HE IS IN AGREEMENT. FORGETS AND CALLS AGAIN WITHIN A FEW MINUTES.
[2024-08-01] MEDS ORDERED: Octreotide Acetate 50 MCG in NS 50 ML IV STA (13:14)
[2024-08-01] MEDS ORDERED: Octreotide Acetate 500 MCG in NS 250 ML IV SCH (13:20)
--- NOTE | 2024-08-01 13:33 | NUR ---
SOLE BUFFER REPORTS BLACK STOOLS. CALL TO DR JEAN WHO ORDERED SANDOSTATIN GTTs, PANTOPRAZOLE 40MG BID AND STOOL GUAIAC.
[2024-08-01 13:34] LABS: Hematocrit 27.1 % (37.0-53.0); Hemoglobin 8.7 g/dL (13.5-17.5)
[2024-08-01] MEDS ORDERED: Pantoprazole Sodium 40 MG Injection IV SCH (14:00)
[2024-08-01 15:15] VITALS: BP 134/86
[2024-08-01] MEDS ORDERED: Methocarbamol500 MG PO (16:09)
[2024-08-01] MEDS ORDERED: LATA.005SO BOTHEYES (16:09)
--- NOTE | 2024-08-01 18:43 | NUR ---
DAY SHIFT SUMMARY: A&Ox3-4 WITH EPISODIC FORGETFULNESS. SHOWS PROFICIENT ABILITY TO USE CALL LIGHT. REQUIRES FREQUENT REMINDERS REGARDING MEDICAL INFORMATION GIVEN BY HOT STRIP MILL SUPERVISOR, NURSE AND PROVIDER, SUCH DISCHARGING, NOT DISCHARGING, WHEN MEDS HAVE BEEN GIVEN, ETC. MEDS WHOLE WITH FLUIDS. STAND-PIVOT TO BSC FOR BOWEL CARE. URINAL OR BSC FOR VOIDING; DIFFICULTY WITH RETENTION SECONDARY TO BPH Dx. POST-VOID RESIDUAL TODAY OF 512cc. STRAIGHT CATH DONE AND YIELDED 550mL LIGHT YELLOW URINE. HOT STRIP MILL SUPERVISOR REPORTED BLACK, TARRY STOOLS TODAY. STARTED ON PROTONIX 40MG IV BID, SANDOSTATIN LOADING DOSE FOLLOWED BY SANDOSTATIN GTT @ 25mL/hr. CONTINUES WITH LACTULOSE. PLAN TO DC TOMORROW IF STOOL GUAIAC NEGATIVE. BED IN LOWEST POSITION. CALL LIGHT WITHIN REACH. ALL NEEDS MET. REPORT TO ONCOMING NURSE.
[2024-08-01 19:27] VITALS: BP 140/65
[2024-08-01 21:31] LABS: Hematocrit 26.4 % (37.0-53.0); Hemoglobin 8.2 g/dL (13.5-17.5)
--- NOTE | 2024-08-02 04:00 | NUR ---
SHIFT SUMMARY ADMITTED FOR HEPATIC ENCEPHALOPATHY, UTI. DNR CODE. IV ANTIB RX ARE SCHEDULED. SANDOSTATIN GTT INFUSING CONTINUOUSLY. BLADDER SCANS Q6 FOR RETENTION AND HX OF BPH. LACTULOSE IS SCHEDULED. HX OF CIRRHOSIS AND ETOH. 1 ASSIST/PIVOT TO BSC. LOOSE BM THIS SHIFT, BROWN. A&O X3-4, FORGETFUL. HE LIVES AT [facility] W/SPOUSE. AWAITING GUAIC LAB RESULTS FOR STOOL SAMPLE.
[2024-08-02 04:38] VITALS: BP 126/58
[2024-08-02 05:41] LABS: BASOPHILS ABSOLUTE AUTO 0.05 K/mm3 (0.00-0.23); BASOPHILS PERCENT AUTO 1 % (0-2); EOSINOPHILS ABSOLUTE AUTO 0.21 K/mm3 (0.00-0.68); EOSINOPHILS PERCENT AUTO 5 % (0-6); Hematocrit 25.2 % (37.0-53.0); IMMATURE GRAN PERCENT AUTO 0 % (0-1); LYMPHOCYTES ABSOLUTE AUTO 1.25 K/mm3 (0.84-5.20); LYMPHOCYTES PERCENT AUTO 32 % (21-46); MONOCYTES PERCENT AUTO 10 % (4-13); Mean Corpuscular HGB Conc 31.7 g/dL (31.5-36.5); Mean Corpuscular Volume 85 fL (80-100); Mean Platelet Volume 11.1 fL (9.1-12.4); NEUTROPHILS PERCENT AUTO 51 % (41-73); Platelet Count 110 K/mm3 (150-400); RDW Coefficient Variation 18.8 % (11.7-14.2); RDW Standard Deviation 58.6 fL (35.1-46.3); Red Blood Cell Count 2.96 M/mm3 (4.30-5.90); White Blood Cell Count 3.91 K/mm3 (4.00-11.30)
[2024-08-02 06:02] LABS: Albumin, Blood 1.8 g/dL (3.4-5.0); Albumin/Globulin Ratio 0.5 (0.8-1.8); Bilirubin, Total 0.5 mg/dL (0.1-1.0); Bun/Creatinine Ratio 15.1 (12.0-20.0); Calcium, Blood 8.4 mg/dL (8.5-10.1); Creatinine, Blood 2.84 mg/dL (0.60-1.20); Globulin, Blood 3.9 g/dL (2.2-4.0); Potassium, Blood 4.1 mmol/L (3.5-5.5); Total Protein, Blood 5.7 g/dL (6.4-8.2)
[2024-08-02 07:37] VITALS: BP 147/60
[2024-08-02] MEDS ORDERED: Tamsulosin HCl 0.4 MG Cap PO SCH (09:00)
[2024-08-02 13:15] LABS: Hematocrit 26.1 % (37.0-53.0); Hemoglobin 8.3 g/dL (13.5-17.5)
[2024-08-02 14:02] LABS: Stool Occult Blood Guaiac 1 Pos (Neg)
--- NOTE | 2024-08-02 17:44 | NUR ---
SHIFT SUMMARY PT AWAKE DURING SHIFT REPORT, WATCHING TV. PT WANTING TO GO HOME TODAY. GI CONSULT ORDERED; HOSPITALIST WAITING FOR RECOMMENDATIONS FOR GI F/U. STOOL GUIAC RETURNED POSITIVE. PT REMAINS ON SANDOSTATIN DRIP. H/H IMPROVING. PT UP TO BSC SEVERAL TIMES TODAY FOR LOOSE BROWN STOOLS R/T LACTULOSE; NO LONGER BLACK OR TARRY. PT ALSO ABLE TO USE URINAL AT TIMES IN BED. PVR SCAN AT NOON SHOWING 91cc. PT STARTED ON FLOMAX THIS AM. DENIES FURTHER NEEDS. PLEASANT AND CO-OP WITH CARE. CALL LT IN REACH.
[2024-08-02 20:18] VITALS: BP 144/62
[2024-08-02] MEDS ORDERED: Latanoprost 0.005% Opth Soln 2.5 ML BOTHEYES SCH (21:00)
[2024-08-03 05:32] VITALS: BP 137/57
[2024-08-03 05:37] LABS: Hematocrit 23.4 % (37.0-53.0); Hemoglobin 7.1 g/dL (13.5-17.5); Mean Corpuscular HGB 26.4 pg (26.0-34.0); Mean Corpuscular HGB Conc 30.3 g/dL (31.5-36.5); Mean Corpuscular Volume 87 fL (80-100); Mean Platelet Volume 11.1 fL (9.1-12.4); Platelet Count 101 K/mm3 (150-400); RDW Coefficient Variation 18.9 % (11.7-14.2); RDW Standard Deviation 60.6 fL (35.1-46.3); Red Blood Cell Count 2.69 M/mm3 (4.30-5.90); White Blood Cell Count 3.51 K/mm3 (4.00-11.30)
[2024-08-03 05:54] LABS: International Normalized Ratio 1.08; Prothrombin Time Results 11.5 Sec (9.7-11.5)
[2024-08-03 06:05] LABS: BAND PERCENT MAN 1 % (0-8); BASOPHILS PERCENT MAN 0 % (0-2); EOSINOPHILS ABSOLUTE MAN 0.42 K/mm3 (0.00-0.68); EOSINOPHILS PERCENT MAN 12 % (0-6); LYMPHOCYTES ABSOLUTE MAN 0.98 K/mm3 (0.84-5.20); LYMPHOCYTES PERCENT MAN 28 % (21-46); MONOCYTES ABSOLUTE MAN 0.03 K/mm3 (0.16-1.47); MONOCYTES PERCENT MAN 1 % (4-13); NEUTROPHILS ABSOLUTE MAN 2.03 K/mm3 (1.96-9.15); PLASMA CELL ABSOLUTE MAN 0.03 K/mm3 (0.00-0.00); PLASMA CELLS PERCENT MAN 1 % (0-0); SEG NEUTROPHILS PERCENT MAN 57 % (41-73); TOTAL CELLS COUNTED 100
[2024-08-03 06:15] LABS: Albumin, Blood 1.8 g/dL (3.4-5.0); Albumin/Globulin Ratio 0.5 (0.8-1.8); Bilirubin, Total 0.5 mg/dL (0.1-1.0); Bun/Creatinine Ratio 14.3 (12.0-20.0); Creatinine, Blood 2.58 mg/dL (0.60-1.20); Globulin, Blood 3.8 g/dL (2.2-4.0); Potassium, Blood 4.2 mmol/L (3.5-5.5); Total Protein, Blood 5.6 g/dL (6.4-8.2)
--- NOTE | 2024-08-03 06:37 | NUR ---
SHIFT SUMMARY: Pt admitted for hepatic encephalopathy and is a DNR. is alert and able to make needs known but forgetful. ADLs have been 1p. Pain was managed with PRN pain management.
[2024-08-03 07:50] VITALS: BP 140/64
[2024-08-03] MEDS ORDERED: Lactulose 20 GM/30 ML UDC PO SCH (09:00)
--- NOTE | 2024-08-03 11:11 | NUR ---
1030 RECALLED GI CONSULT AGAIN THIS MORNING, PER DR MOTT. SPOKE WITH DR PINTO REGARDING CONSULT RECOMMENDATIONS. PT OK TO FOLLOW UP GI OUTPATIENT. DR MOTT NOTIFIED.
[2024-08-03 11:53] LABS: Hematocrit 24.3 % (37.0-53.0); Hemoglobin 7.6 g/dL (13.5-17.5)
[2024-08-03] MEDS ORDERED: NADO20 PO (13:59)
[2024-08-03] MEDS ORDERED: PANT40 PO (14:00)
[2024-08-03] MEDS ORDERED: LACT10SY PO (14:06)
--- NOTE | 2024-08-03 16:16 | NUR ---
PT AWAKE DURING SHIFT REPORT, WATCHING TV. PT WANTING TO GO HOME TODAY. DR MYLES AND DR MOTT IN TO SEE PT AND DISCUSS PLAN OF CARE. DR PINTO RECALLED AGAIN THIS AM FOR FOLLOW UP RECOMMENDATIONS. PT OK TO F/U WITH OUTPT GI. H/H RECKED THIS AM. D/C ORDERS PLACED. MEDS FAXED PER PT REQUEST. PT'S NOTIFIED AND MADE ARRANGEMENTS TO CORPORATE SAFETY COORDINATOR PT. PT ASSISTED OUT TO CAR VIA W/C. PT ABLE TO STAND AND PIVOT TO CHAIRS AND BSC NEEDED. ALL BELONGINGS WENT WITH PT.
== END 2024-08-03 15:07 | disposition home health service (06) | DRG 441 ==
LOC: ER 09:48 → MEDS 09:49
PROVIDERS: Family Medicine Adult Medicine; Student in an Organized Health Care Education/Training Program; ADMIT Internal Medicine
DX: K76.82 Hepatic encephalopathy (principal); G92.8 Other toxic encephalopathy; I85.11 Secondary esophageal varices with bleeding; D61.818 Other pancytopenia; N18.4 Chronic kidney disease, stage 4 (severe); K92.1 Melena; N40.1 Benign prostatic hyperplasia with lower urinary tract symptoms; G89.29 Other chronic pain; Z66 Do not resuscitate; R33.8 Other retention of urine; K72.10 Chronic hepatic failure without coma; I12.9 Hypertensive chronic kidney disease with stage 1 through stage 4 chronic kidney disease, or unspecified chronic kidney disease; Z96.652 Presence of left artificial knee joint; F10.90 Alcohol use, unspecified, uncomplicated; D63.1 Anemia in chronic kidney disease; Z71.41 Alcohol abuse counseling and surveillance of alcoholic; R00.1 Bradycardia, unspecified; T44.7X5A Adverse effect of beta-adrenoreceptor antagonists, initial encounter; K70.30 Alcoholic cirrhosis of liver without ascites; Z88.8 Allergy status to other drugs, medicaments and biological substances; Z98.890 Other specified postprocedural states; Z79.891 Long term (current) use of opiate analgesic; Z79.899 Other long term (current) drug therapy
CPT/HCPCS: 36415; 51701; 80053; 81001; 82140; 82270; 83735; 85014; 85018; 85025; 85610; 87086; 93005; 93010; 96361; 96365; 96366; 96367; 96372; 96375; 97110; 97162; 97165; 97530; 99285-25; A9270; G0378; J0696; J1644; J2354; J2405; J2470; J7030; J7040; J7050; J7120; P9612